=== PATIENT | female | born 1955 | race African-American/Black ===

== ENCOUNTER 2017-08-09 10:29 | Inpatient (IN) ==
[2017-08-09] MEDS ORDERED: FUROSEMIDE 100 MG/10 ML VIAL IV STA (10:49)
[2017-08-09] MEDS ORDERED: MORPHINE 4 MG/1 ML VIAL IV STA (10:50)
[2017-08-09 11:57] LABS: Basophils % 0.4 % (0.0-0.8); Eosinophils # 0.3 10*3/uL (0.0-0.87); Eosinophils % 2.6 % (0.00-10.9); Hematocrit 41.3 VOL% (35.7-47.0); Hemoglobin 12.5 GM/DL (12.0-16.0); Immature Granulocytes % 0.6 %; Immature Granulocytes Absolute 0.06 #; Lymphocytes # 1.3 10*3/uL (1.4-4.0); Lymphocytes % 12.2 % (21.3-54.2); Mean Corpuscular HGB Conc 30.3 GM/DL (32-36); Mean Corpuscular Hemoglobin 30 PG (27-34); Mean Corpuscular Volume 100.2 FL (87-102); Mean Platelet Volume 12.3 FL (9.6-12.0); Monocytes # 0.6 10*3/uL (0.11-0.8); Monocytes % 5.8 % (1.7-12.7); Neutrophils # 8.3 10*3/uL (1.4-7.4); Neutrophils % 78.4 % (38.7-73.9); Platelet Count 158 T/CUMM (130-400); Red Blood Count 4.12 MC/CUMM (3.8-5.5); White Blood Count 10.6 T/CUMM (4-12)
[2017-08-09 12:10] LABS: PT Patient Result 10.5 SECS
[2017-08-09 12:21] LABS: Albumin 3.4 G/DL (3.4-5.0); Bilirubin,Total 0.6 MG/DL (0.2-1.0); Calcium 11.2 MG/DL (8.5-10.1); Osmolality,Calculated 304.8 MOS/KG (273-304); Potassium 5.3 MMOL/L (3.5-5.1); Total Protein 7.2 G/DL (6.4-8.3)
[2017-08-09 12:22] LABS: Troponin I Only 0.885 NG/ML (0.00-0.045)
[2017-08-09] MEDS ORDERED: ONDANSETRON 4 MG/2 ML VIAL IV PRN (12:50)
[2017-08-09] MEDS ORDERED: GLUCAGON 1 MG VIAL IM PRN (12:50)
[2017-08-09] MEDS ORDERED: MAGNESIUM SULF RIDER 2 GM in PREMIX 1 EACH IV PRN (12:50)
[2017-08-09] MEDS ORDERED: MORPHINE 4 MG/1 ML VIAL IV PRN (12:50)
[2017-08-09] MEDS ORDERED: DEXTROSE 50% 25 GM/50 ML VIAL IV PRN (12:50)
[2017-08-09] MEDS ORDERED: ACETAMINOPHEN 325 MG TABLET PO PRN (12:50)
[2017-08-09] MEDS ORDERED: MAGNESIUM SULF RIDER 4 GM in PREMIX 1 EACH IV PRN (12:50)
[2017-08-09] MEDS ORDERED: ALBUTEROL/IPRATROPIUM 3 ML NEB RESP TX PRN (12:54)
[2017-08-09] MEDS ORDERED: NITROGLYCERIN SL 0.4 MG TABLET SL PRN (12:54)
[2017-08-09] MEDS ORDERED: hydrALAZINE 25 MG TABLET PO ONE (16:22)
[2017-08-09] MEDS ORDERED: ISOSORBIDE MONONITRATE 30 MG TABLET PO ONE (16:30)
[2017-08-09] MEDS: CARVEDILOL 25 MG TABLET PO SCH (16:35)
[2017-08-09] MEDS: FUROSEMIDE 40 MG/4 ML VIAL IV SCH (16:37)
[2017-08-09] MEDS: INSULIN ASPART PROTAMINE/ASPART 70/30 100 UNIT/ML SUBCUT SCH (17:01)
[2017-08-09] MEDS: INSULIN GLARGINE 100 UNIT/ML SUBCUT SCH (21:07)
[2017-08-09] MEDS: diphenhydrAMINE CAP 25 MG CAPSULE PO SCH (21:07)
[2017-08-09] MEDS: hydrALAZINE 25 MG TABLET PO SCH (21:07)
[2017-08-10] MEDS: CARVEDILOL 25 MG TABLET PO SCH ×3 (08:43→16:35)
[2017-08-10] MEDS: SPIRONOLACTONE 25 MG TABLET PO SCH (08:43)
[2017-08-10] MEDS: INSULIN ASPART PROTAMINE/ASPART 70/30 100 UNIT/ML SUBCUT SCH ×2 (08:43→16:35)
[2017-08-10] MEDS: hydrALAZINE 25 MG TABLET PO SCH ×2 (08:44→20:50)
[2017-08-10] MEDS: ATORVASTATIN 20 MG TABLET PO SCH (08:44)
[2017-08-10] MEDS: PANTOPRAZOLE 40 MG TABLET PO SCH (08:44)
[2017-08-10] MEDS: FUROSEMIDE 40 MG/4 ML VIAL IV SCH ×2 (08:44→16:36)
[2017-08-10] MEDS: ALLOPURINOL 100 MG TABLET PO SCH (08:44)
[2017-08-10] MEDS ORDERED: ALBUTEROL/IPRATROPIUM 3 ML NEB RESP TX PRN (08:58)
[2017-08-10] MEDS ORDERED: ALBUTEROL/IPRATROPIUM 3 ML NEB RESP TX ONE (08:58)
[2017-08-10] MEDS ORDERED: ISOSORBIDE MONONITRATE 30 MG TABLET PO SCH (09:00)
[2017-08-10] MEDS: ISOSORBIDE DINITRATE 20 MG TABLET PO SCH ×3 (09:11→20:51)
[2017-08-10] MEDS: INSULIN LISPRO 100 UNIT/ML SUBCUT SCH ×2 (16:39→20:53)
[2017-08-10] MEDS: diphenhydrAMINE CAP 25 MG CAPSULE PO SCH (20:51)
[2017-08-10] MEDS: INSULIN GLARGINE 100 UNIT/ML SUBCUT SCH (20:51)
[2017-08-11 05:18] LABS: Basophils % 0.4 % (0.0-0.8); Eosinophils # 0.3 10*3/uL (0.0-0.87); Eosinophils % 4.3 % (0.00-10.9); Hematocrit 37.9 VOL% (35.7-47.0); Hemoglobin 11.5 GM/DL (12.0-16.0); Immature Granulocytes % 0.4 %; Immature Granulocytes Absolute 0.03 #; Lymphocytes # 2.1 10*3/uL (1.4-4.0); Lymphocytes % 28.6 % (21.3-54.2); Mean Corpuscular HGB Conc 30.3 GM/DL (32-36); Mean Corpuscular Hemoglobin 31 PG (27-34); Mean Corpuscular Volume 100.8 FL (87-102); Mean Platelet Volume 12.1 FL (9.6-12.0); Monocytes # 0.6 10*3/uL (0.11-0.8); Monocytes % 8.5 % (1.7-12.7); NRBC # 0.02 10*3/uL; Neutrophils # 4.3 10*3/uL (1.4-7.4); Neutrophils % 57.8 % (38.7-73.9); Platelet Count 129 T/CUMM (130-400); Red Blood Count 3.76 MC/CUMM (3.8-5.5); Red Cell Distribution Width 13.8 % (9.3-17.3); White Blood Count 7.4 T/CUMM (4-12)
[2017-08-11 05:38] LABS: Albumin 3.2 G/DL (3.4-5.0); Bilirubin,Total 0.9 MG/DL (0.2-1.0); Potassium 4.8 MMOL/L (3.5-5.1); Risk Ratio 3.4; Total Protein 6.2 G/DL (6.4-8.3); VLDL CHOLESTEROL 30.2 MG/DL
[2017-08-11] MEDS: INSULIN LISPRO 100 UNIT/ML SUBCUT SCH ×4 (09:16→22:22)
[2017-08-11] MEDS: ISOSORBIDE DINITRATE 20 MG TABLET PO SCH ×3 (09:36→21:24)
[2017-08-11] MEDS: ALLOPURINOL 100 MG TABLET PO SCH (09:36)
[2017-08-11] MEDS: PANTOPRAZOLE 40 MG TABLET PO SCH (09:36)
[2017-08-11] MEDS: ATORVASTATIN 20 MG TABLET PO SCH (09:36)
[2017-08-11] MEDS: INSULIN ASPART PROTAMINE/ASPART 70/30 100 UNIT/ML SUBCUT SCH ×2 (09:37→17:45)
[2017-08-11] MEDS: SPIRONOLACTONE 25 MG TABLET PO SCH (09:37)
[2017-08-11] MEDS: FUROSEMIDE 40 MG/4 ML VIAL IV SCH ×2 (09:37→16:22)
[2017-08-11] MEDS: CARVEDILOL 25 MG TABLET PO SCH ×2 (09:37→17:45)
[2017-08-11] MEDS: hydrALAZINE 25 MG TABLET PO SCH ×3 (09:37→21:24)
[2017-08-11] MEDS: diphenhydrAMINE CAP 25 MG CAPSULE PO SCH (21:24)
[2017-08-11] MEDS: INSULIN GLARGINE 100 UNIT/ML SUBCUT SCH (21:24)
[2017-08-12 05:42] LABS: Osmolality,Calculated 306.1 MOS/KG (273-304); Potassium 4.9 MMOL/L (3.5-5.1)
[2017-08-12] MEDS: FUROSEMIDE 20 MG TABLET PO SCH (09:45)
[2017-08-12] MEDS: ISOSORBIDE DINITRATE 20 MG TABLET PO SCH ×3 (09:45→22:18)
[2017-08-12] MEDS: INSULIN ASPART PROTAMINE/ASPART 70/30 100 UNIT/ML SUBCUT SCH ×2 (09:46→16:40)
[2017-08-12] MEDS: ATORVASTATIN 20 MG TABLET PO SCH (09:46)
[2017-08-12] MEDS: PANTOPRAZOLE 40 MG TABLET PO SCH (09:46)
[2017-08-12] MEDS: hydrALAZINE 25 MG TABLET PO SCH (09:46)
[2017-08-12] MEDS: ALLOPURINOL 100 MG TABLET PO SCH (09:46)
[2017-08-12] MEDS: CARVEDILOL 25 MG TABLET PO SCH ×2 (09:46→16:41)
[2017-08-12] MEDS: INSULIN LISPRO 100 UNIT/ML SUBCUT SCH ×4 (09:47→22:48)
[2017-08-12] MEDS: amLODIPine 2.5 MG TABLET PO SCH (10:05)
[2017-08-12] MEDS: diphenhydrAMINE CAP 25 MG CAPSULE PO SCH (22:19)
[2017-08-12] MEDS: INSULIN GLARGINE 100 UNIT/ML SUBCUT SCH (22:19)
[2017-08-13 05:36] LABS: Basophils % 0.4 % (0.0-0.8); Eosinophils # 0.3 10*3/uL (0.0-0.87); Eosinophils % 3.8 % (0.00-10.9); Hematocrit 36.5 VOL% (35.7-47.0); Hemoglobin 11.3 GM/DL (12.0-16.0); Immature Granulocytes % 0.5 %; Immature Granulocytes Absolute 0.04 #; Lymphocytes % 24.3 % (21.3-54.2); Mean Corpuscular Hemoglobin 31 PG (27-34); Mean Corpuscular Volume 99.2 FL (87-102); Mean Platelet Volume 12.4 FL (9.6-12.0); Monocytes # 0.8 10*3/uL (0.11-0.8); Monocytes % 10.1 % (1.7-12.7); Neutrophils % 60.9 % (38.7-73.9); Platelet Count 129 T/CUMM (130-400); Red Blood Count 3.68 MC/CUMM (3.8-5.5); Red Cell Distribution Width 13.7 % (9.3-17.3); White Blood Count 8.2 T/CUMM (4-12)
[2017-08-13 05:57] LABS: Calcium 10.4 MG/DL (8.5-10.1); Osmolality,Calculated 307.3 MOS/KG (273-304)
[2017-08-13] MEDS ORDERED: hydrALAZINE 25 MG TABLET ONE (08:23)
[2017-08-13] MEDS: INSULIN ASPART PROTAMINE/ASPART 70/30 100 UNIT/ML SUBCUT SCH (09:15)
[2017-08-13] MEDS: FUROSEMIDE 20 MG TABLET PO SCH (09:16)
[2017-08-13] MEDS: INSULIN LISPRO 100 UNIT/ML SUBCUT SCH ×2 (09:16→12:10)
[2017-08-13] MEDS: PANTOPRAZOLE 40 MG TABLET PO SCH (09:17)
[2017-08-13] MEDS: CARVEDILOL 25 MG TABLET PO SCH (09:17)
[2017-08-13] MEDS: ISOSORBIDE DINITRATE 20 MG TABLET PO SCH (09:17)
[2017-08-13] MEDS: ALLOPURINOL 100 MG TABLET PO SCH (09:17)
[2017-08-13] MEDS: amLODIPine 2.5 MG TABLET PO SCH (09:17)
[2017-08-13] MEDS: ATORVASTATIN 20 MG TABLET PO SCH (09:17)
[2017-08-13 12:05] VITALS: BP 119/75
== END 2017-08-13 15:20 | disposition home or self-care (01) | DRG 291 ==
LOC: EDUNIT# → N.ED 10:29 → N.EDINP 12:50 → N.TELEN 14:21
PROVIDERS: ADMIT Family Medicine; ATTEND Family Medicine

== ENCOUNTER 2017-11-10 13:15 | Inpatient (IN) ==
[2017-11-10 15:39] LABS: Basophils % 0.4 % (0.0-0.8); Eosinophils # 0.3 10*3/uL (0.0-0.87); Eosinophils % 3.2 % (0.00-10.9); Hematocrit 40.6 VOL% (35.7-47.0); Hemoglobin 12.2 GM/DL (12.0-16.0); Immature Granulocytes % 0.4 %; Immature Granulocytes Absolute 0.03 #; Lymphocytes # 1.5 10*3/uL (1.4-4.0); Lymphocytes % 17.6 % (21.3-54.2); Mean Corpuscular Hemoglobin 29 PG (27-34); Mean Corpuscular Volume 97.6 FL (87-102); Mean Platelet Volume 11.9 FL (9.6-12.0); Monocytes # 0.9 10*3/uL (0.11-0.8); Monocytes % 10.9 % (1.7-12.7); Neutrophils # 5.6 10*3/uL (1.4-7.4); Neutrophils % 67.5 % (38.7-73.9); Platelet Count 159 T/CUMM (130-400); Red Blood Count 4.16 MC/CUMM (3.8-5.5); Red Cell Distribution Width 14.2 % (9.3-17.3); White Blood Count 8.3 T/CUMM (4-12)
[2017-11-10 15:48] LABS: PT Patient Result 10.6 SECS
[2017-11-10 15:55] LABS: Albumin 3.4 G/DL (3.4-5.0); Bilirubin,Total 0.9 MG/DL (0.2-1.0); Calcium 11.6 MG/DL (8.5-10.1); Osmolality,Calculated 293.8 MOS/KG (273-304); Potassium 4.3 MMOL/L (3.5-5.1); Total Protein 6.7 G/DL (6.4-8.3)
[2017-11-10] MEDS ORDERED: FUROSEMIDE 100 MG/10 ML VIAL IV STA (16:13)
[2017-11-10] MEDS ORDERED: ALBUTEROL NEB SOLN 5 MG/ML 20 ML/BOTTLE RESP TX SCH (16:30)
[2017-11-10 17:21] LABS: Apearance,Urine CLEAR (Clear); Bilirubin,Urine Negative (Negative); Blood, Urine Negative (Negative); Glucose,Urine (UA) Negative (Negative); Ketones,Urine Negative (Negative); Nitrite,Urine Negative (Negative); Protein,Urine Negative; RBC,Urine 7 /HPF (0-4); Squamous Epithelial Cell,Urine Occasional /HPF (0-10); Urine Color Straw (Yellow); Urine Specific Gravity 1.005 (1.001-1.035); Urine Urobilinogen < 2.0 EU/DL (0.2-1.0); WBC,Urine 4 /HPF (0-6)
[2017-11-10] MEDS ORDERED: PIPERACILLIN/TAZOBACTAM 2,250 MG in SODIUM CHLORIDE 0.9% 100 ML IV STA (17:36)
[2017-11-10] MEDS ORDERED: cefTRIAXone 1,000 MG in SODIUM CHLORIDE 0.9% 100 ML IV STA (17:36)
[2017-11-10] MEDS ORDERED: cefTRIAXone 1,000 MG in SYRINGE 1 EACH IV STA (18:00)
[2017-11-10] MEDS ORDERED: DEXTROSE 50% 25 GM/50 ML VIAL IV PRN (19:46)
[2017-11-10] MEDS ORDERED: SODIUM CHLORIDE 0.9% 1,000 ML IV SCH (19:46)
[2017-11-10] MEDS ORDERED: ONDANSETRON 4 MG/2 ML VIAL IV PRN (19:46)
[2017-11-10] MEDS ORDERED: ACETAMINOPHEN 325 MG TABLET PO PRN (19:46)
[2017-11-10] MEDS ORDERED: ALBUTEROL/IPRATROPIUM 3 ML NEB RESP TX PRN (19:46)
[2017-11-10] MEDS ORDERED: GLUCAGON 1 MG VIAL IM PRN (19:46)
[2017-11-10] MEDS: DOCUSATE SODIUM 100 MG CAPSULE PO SCH (21:19)
[2017-11-10] MEDS: ENOXAPARIN 40 MG/0.4 ML SYRINGE SUBCUT SCH (21:19)
[2017-11-10 22:31] LABS: Troponin I Only 0.829 NG/ML (0.00-0.045)
[2017-11-11] MEDS: INSULIN REGULAR 100 UNIT/ML SUBCUT SCH ×5 (00:06→21:03)
[2017-11-11] MEDS: PIPERACILLIN/TAZOBACTAM 3,375 MG in SODIUM CHLORIDE 0.9% 100 ML IV SCH ×3 (02:40→21:02)
[2017-11-11 05:35] LABS: Bilirubin,Total 0.7 MG/DL (0.2-1.0); Calcium 11.3 MG/DL (8.5-10.1); Risk Ratio 3.37; Total Protein 6.5 G/DL (6.4-8.3); VLDL CHOLESTEROL 45.6 MG/DL
[2017-11-11 05:56] LABS: Basophils % 0.4 % (0.0-0.8); Eosinophils # 0.3 10*3/uL (0.0-0.87); Eosinophils % 3.9 % (0.00-10.9); Hematocrit 38.7 VOL% (35.7-47.0); Hemoglobin 11.7 GM/DL (12.0-16.0); Immature Granulocytes % 0.4 %; Immature Granulocytes Absolute 0.03 #; Lymphocytes # 1.4 10*3/uL (1.4-4.0); Lymphocytes % 18.3 % (21.3-54.2); Mean Corpuscular HGB Conc 30.2 GM/DL (32-36); Mean Corpuscular Hemoglobin 30 PG (27-34); Mean Corpuscular Volume 97.5 FL (87-102); Mean Platelet Volume 12.4 FL (9.6-12.0); Monocytes # 0.9 10*3/uL (0.11-0.8); Monocytes % 11.7 % (1.7-12.7); Neutrophils # 5.1 10*3/uL (1.4-7.4); Neutrophils % 65.3 % (38.7-73.9); Platelet Count 140 T/CUMM (130-400); Red Blood Count 3.97 MC/CUMM (3.8-5.5); Red Cell Distribution Width 14.2 % (9.3-17.3); White Blood Count 7.9 T/CUMM (4-12)
[2017-11-11] MEDS ORDERED: NITROGLYCERIN SL 0.4 MG TABLET SL PRN (08:09)
[2017-11-11] MEDS: FUROSEMIDE 40 MG/4 ML VIAL IV SCH ×2 (09:24→17:54)
[2017-11-11] MEDS: amLODIPine 2.5 MG TABLET PO SCH (09:25)
[2017-11-11] MEDS: ISOSORBIDE DINITRATE 20 MG TABLET PO SCH ×3 (09:25→21:02)
[2017-11-11] MEDS: ATORVASTATIN 20 MG TABLET PO SCH (09:26)
[2017-11-11] MEDS: DOCUSATE SODIUM 100 MG CAPSULE PO SCH ×2 (09:26→21:02)
[2017-11-11] MEDS: PANTOPRAZOLE 40 MG TABLET PO SCH (09:26)
[2017-11-11] MEDS: ASPIRIN EC 81 MG TABLET PO SCH (09:27)
[2017-11-11 10:18] LABS: CKMB % 1.9 %
[2017-11-11 10:19] LABS: Troponin I Only 0.852 NG/ML (0.00-0.045)
[2017-11-11 11:57] LABS: Calcium 11.3 MG/DL (8.5-10.1); Osmolality,Calculated 297.3 MOS/KG (273-304); Potassium 4.1 MMOL/L (3.5-5.1)
[2017-11-11 12:01] LABS: CKMB % 1.9 %
[2017-11-11 12:02] LABS: Troponin I Only 0.82 NG/ML (0.00-0.045)
[2017-11-11] MEDS: cefTRIAXone 1,000 MG in SYRINGE 1 EACH IV SCH (17:53)
[2017-11-11] MEDS: CARVEDILOL 25 MG TABLET PO SCH (17:56)
[2017-11-11] MEDS: ENOXAPARIN 40 MG/0.4 ML SYRINGE SUBCUT SCH (21:02)
[2017-11-12] MEDS: PIPERACILLIN/TAZOBACTAM 3,375 MG in SODIUM CHLORIDE 0.9% 100 ML IV SCH ×3 (04:01→21:25)
[2017-11-12 06:03] LABS: Basophils % 0.4 % (0.0-0.8); Calcium 11.5 MG/DL (8.5-10.1); Eosinophils # 0.4 10*3/uL (0.0-0.87); Eosinophils % 5.2 % (0.00-10.9); Hematocrit 39.4 VOL% (35.7-47.0); Hemoglobin 11.9 GM/DL (12.0-16.0); Immature Granulocytes % 0.3 %; Immature Granulocytes Absolute 0.02 #; Lymphocytes # 1.5 10*3/uL (1.4-4.0); Lymphocytes % 20.2 % (21.3-54.2); Mean Corpuscular HGB Conc 30.2 GM/DL (32-36); Mean Corpuscular Hemoglobin 29 PG (27-34); Mean Platelet Volume 12.5 FL (9.6-12.0); Monocytes % 12.9 % (1.7-12.7); Neutrophils # 4.6 10*3/uL (1.4-7.4); Osmolality,Calculated 298.1 MOS/KG (273-304); Platelet Count 157 T/CUMM (130-400); Potassium 4.1 MMOL/L (3.5-5.1); Red Blood Count 4.06 MC/CUMM (3.8-5.5); Red Cell Distribution Width 14.2 % (9.3-17.3); White Blood Count 7.5 T/CUMM (4-12)
[2017-11-12 06:08] LABS: Calcium 11.9 MG/DL (8.5-10.1); Osmolality,Calculated 297.3 MOS/KG (273-304); Potassium 4.1 MMOL/L (3.5-5.1)
[2017-11-12] MEDS ORDERED: ACETAMINOPHEN 325 MG TABLET PO PRN (08:06)
[2017-11-12] MEDS: INSULIN REGULAR 100 UNIT/ML SUBCUT SCH ×4 (08:51→21:27)
[2017-11-12] MEDS: CARVEDILOL 25 MG TABLET PO SCH ×2 (08:54→16:53)
[2017-11-12] MEDS: DOCUSATE SODIUM 100 MG CAPSULE PO SCH ×2 (08:54→21:26)
[2017-11-12] MEDS: amLODIPine 2.5 MG TABLET PO SCH (08:54)
[2017-11-12] MEDS: ASPIRIN EC 81 MG TABLET PO SCH (08:54)
[2017-11-12] MEDS: ISOSORBIDE DINITRATE 20 MG TABLET PO SCH ×3 (08:54→21:26)
[2017-11-12] MEDS: PANTOPRAZOLE 40 MG TABLET PO SCH (08:54)
[2017-11-12] MEDS: ATORVASTATIN 20 MG TABLET PO SCH (08:54)
[2017-11-12] MEDS: ALLOPURINOL 100 MG TABLET PO SCH (12:36)
[2017-11-12] MEDS: FUROSEMIDE 80 MG TABLET PO SCH (12:37)
[2017-11-12] MEDS: FUROSEMIDE 40 MG/4 ML VIAL IV SCH (14:13)
[2017-11-12] MEDS: cefTRIAXone 1,000 MG in SYRINGE 1 EACH IV SCH ×2 (16:51→17:22)
[2017-11-12] MEDS: INSULIN ASPART PROTAMINE/ASPART 70/30 100 UNIT/ML SUBCUT SCH (16:53)
[2017-11-12] MEDS: diphenhydrAMINE CAP 25 MG CAPSULE PO SCH (21:25)
[2017-11-12] MEDS: INSULIN GLARGINE 100 UNIT/ML SUBCUT SCH (21:26)
[2017-11-12] MEDS: ENOXAPARIN 40 MG/0.4 ML SYRINGE SUBCUT SCH (21:26)
[2017-11-13] MEDS: PIPERACILLIN/TAZOBACTAM 3,375 MG in SODIUM CHLORIDE 0.9% 100 ML IV SCH ×3 (05:14→21:33)
[2017-11-13 06:15] LABS: Calcium 10.9 MG/DL (8.5-10.1); Osmolality,Calculated 296.4 MOS/KG (273-304); Potassium 4.3 MMOL/L (3.5-5.1)
[2017-11-13 06:21] LABS: Basophils % 0.5 % (0.0-0.8); Eosinophils # 0.4 10*3/uL (0.0-0.87); Eosinophils % 4.7 % (0.00-10.9); Hematocrit 40.8 VOL% (35.7-47.0); Hemoglobin 12.3 GM/DL (12.0-16.0); Immature Granulocytes % 0.4 %; Immature Granulocytes Absolute 0.03 #; Lymphocytes # 1.5 10*3/uL (1.4-4.0); Mean Corpuscular HGB Conc 30.1 GM/DL (32-36); Mean Corpuscular Hemoglobin 30 PG (27-34); Mean Corpuscular Volume 98.1 FL (87-102); Mean Platelet Volume 12.6 FL (9.6-12.0); Monocytes % 12.1 % (1.7-12.7); Neutrophils # 5.1 10*3/uL (1.4-7.4); Neutrophils % 63.3 % (38.7-73.9); Platelet Count 156 T/CUMM (130-400); Red Blood Count 4.16 MC/CUMM (3.8-5.5); Red Cell Distribution Width 14.1 % (9.3-17.3); White Blood Count 8.1 T/CUMM (4-12)
[2017-11-13] MEDS: PANTOPRAZOLE 40 MG TABLET PO SCH (09:03)
[2017-11-13] MEDS: ISOSORBIDE DINITRATE 20 MG TABLET PO SCH ×3 (09:04→21:33)
[2017-11-13] MEDS: INSULIN ASPART PROTAMINE/ASPART 70/30 100 UNIT/ML SUBCUT SCH ×2 (09:04→17:16)
[2017-11-13] MEDS: amLODIPine 2.5 MG TABLET PO SCH (09:05)
[2017-11-13] MEDS: CARVEDILOL 25 MG TABLET PO SCH ×2 (09:05→17:02)
[2017-11-13] MEDS: ALLOPURINOL 100 MG TABLET PO SCH (09:05)
[2017-11-13] MEDS: ATORVASTATIN 20 MG TABLET PO SCH (09:05)
[2017-11-13] MEDS: ASPIRIN EC 81 MG TABLET PO SCH (09:06)
[2017-11-13] MEDS: FUROSEMIDE 80 MG TABLET PO SCH (09:06)
[2017-11-13] MEDS: DOCUSATE SODIUM 100 MG CAPSULE PO SCH ×2 (09:16→21:37)
[2017-11-13] MEDS: INSULIN REGULAR 100 UNIT/ML SUBCUT SCH ×4 (09:16→21:58)
[2017-11-13] MEDS: cefTRIAXone 1,000 MG in SYRINGE 1 EACH IV SCH (17:06)
[2017-11-13] MEDS: ENOXAPARIN 40 MG/0.4 ML SYRINGE SUBCUT SCH (21:33)
[2017-11-13] MEDS: diphenhydrAMINE CAP 25 MG CAPSULE PO SCH (21:33)
[2017-11-13] MEDS: INSULIN GLARGINE 100 UNIT/ML SUBCUT SCH (21:59)
[2017-11-14 04:48] LABS: Basophils % 0.3 % (0.0-0.8); Eosinophils # 0.3 10*3/uL (0.0-0.87); Eosinophils % 4.4 % (0.00-10.9); Hemoglobin 11.2 GM/DL (12.0-16.0); Immature Granulocytes % 0.4 %; Immature Granulocytes Absolute 0.03 #; Lymphocytes # 1.3 10*3/uL (1.4-4.0); Lymphocytes % 19.2 % (21.3-54.2); Mean Corpuscular HGB Conc 30.3 GM/DL (32-36); Mean Corpuscular Hemoglobin 29 PG (27-34); Mean Corpuscular Volume 96.6 FL (87-102); Mean Platelet Volume 12.6 FL (9.6-12.0); Monocytes # 0.9 10*3/uL (0.11-0.8); Monocytes % 13.4 % (1.7-12.7); Neutrophils # 4.2 10*3/uL (1.4-7.4); Neutrophils % 62.3 % (38.7-73.9); Platelet Count 147 T/CUMM (130-400); Red Blood Count 3.83 MC/CUMM (3.8-5.5); Red Cell Distribution Width 14.2 % (9.3-17.3); White Blood Count 6.8 T/CUMM (4-12)
[2017-11-14] MEDS: PIPERACILLIN/TAZOBACTAM 3,375 MG in SODIUM CHLORIDE 0.9% 100 ML IV SCH ×3 (05:06→20:06)
[2017-11-14 05:16] LABS: Calcium 10.3 MG/DL (8.5-10.1); Osmolality,Calculated 300.1 MOS/KG (273-304); Potassium 3.9 MMOL/L (3.5-5.1)
[2017-11-14] MEDS ORDERED: ceFAZolin 1,000 MG in SYRINGE 1 EACH IV ONE (06:00)
[2017-11-14] MEDS ORDERED: FAMOTIDINE 20 MG TABLET PO ONE (07:00)
[2017-11-14] MEDS ORDERED: DIAZEPAM 5 MG TABLET PO ONE (07:00)
[2017-11-14] MEDS ORDERED: ALBUTEROL/IPRATROPIUM 3 ML NEB RESP TX PRN (07:00)
[2017-11-14] MEDS: INSULIN REGULAR 100 UNIT/ML SUBCUT SCH ×4 (07:59→20:13)
[2017-11-14] MEDS: INSULIN ASPART PROTAMINE/ASPART 70/30 100 UNIT/ML SUBCUT SCH ×2 (08:00→16:20)
[2017-11-14] MEDS ORDERED: BUPIVACAINE 0.25% /EPI 10 ML VIAL ONE (10:01)
[2017-11-14] MEDS ORDERED: LIDOCAINE 1%/EPI INJ 20 ML VIAL ONE (10:02)
[2017-11-14] MEDS: FUROSEMIDE 80 MG TABLET PO SCH (10:09)
[2017-11-14] MEDS: CARVEDILOL 25 MG TABLET PO SCH ×2 (10:09→16:21)
[2017-11-14] MEDS: ASPIRIN EC 81 MG TABLET PO SCH (10:09)
[2017-11-14] MEDS: DOCUSATE SODIUM 100 MG CAPSULE PO SCH ×3 (10:09→20:09)
[2017-11-14] MEDS: ISOSORBIDE DINITRATE 20 MG TABLET PO SCH ×3 (10:09→20:06)
[2017-11-14] MEDS: ATORVASTATIN 20 MG TABLET PO SCH (10:10)
[2017-11-14] MEDS: ALLOPURINOL 100 MG TABLET PO SCH (10:10)
[2017-11-14] MEDS: PANTOPRAZOLE 40 MG TABLET PO SCH (10:10)
[2017-11-14] MEDS: amLODIPine 2.5 MG TABLET PO SCH (10:10)
[2017-11-14] MEDS ORDERED: SODIUM CHLORIDE 0.9% 250 ML IV SCH (10:30)
[2017-11-14] MEDS ORDERED: MICROFIBRILLAR COLLAGEN POWDER 1 GM CAN TOP ONE (11:40)
[2017-11-14] MEDS ORDERED: TISSUE ADHESIVE 1 EACH APPLICATOR TOP ONE (12:03)
[2017-11-14] MEDS ORDERED: ALBUTEROL/IPRATROPIUM 3 ML NEB RESP TX ONE (12:28)
[2017-11-14] MEDS ORDERED: SEVOFLURANE 1 UNIT/15 MINUTE INH ONE (12:53)
[2017-11-14] MEDS ORDERED: ROCURONIUM 100 MG/10 ML VIAL IV ONE (12:54)
[2017-11-14] MEDS ORDERED: EPINEPHrine 1 MG/ML VIAL ONE (12:54)
[2017-11-14] MEDS ORDERED: PHENYLEPHRINE 10 MG/1 ML VIAL IV ONE (12:54)
[2017-11-14] MEDS ORDERED: PHENYLEPHRINE 1 MG/10 ML SYRINGE IV ONE (12:54)
[2017-11-14] MEDS ORDERED: ETOMIDATE 40 MG/20 ML VIAL IV ONE (12:54)
[2017-11-14] MEDS ORDERED: MIDAZOLAM 2 MG/2 ML VIAL ONE (12:54)
[2017-11-14] MEDS ORDERED: SODIUM CHLORIDE 0.9% 250 ML IV ONE (12:54)
[2017-11-14] MEDS: MORPHINE 4 MG/1 ML VIAL IV PRN (13:35)
[2017-11-14 13:48] LABS: CKMB % 2.2 %
[2017-11-14 13:49] LABS: Troponin I Only 0.899 NG/ML (0.00-0.045)
[2017-11-14 13:58] LABS: Albumin 3.2 G/DL (3.4-5.0); Bilirubin,Total 0.7 MG/DL (0.2-1.0); Calcium 10.6 MG/DL (8.5-10.1); Osmolality,Calculated 303.8 MOS/KG (273-304); Potassium 3.9 MMOL/L (3.5-5.1); Total Protein 6.6 G/DL (6.4-8.3)
[2017-11-14] MEDS: cefTRIAXone 1,000 MG in SYRINGE 1 EACH IV SCH (17:45)
[2017-11-14 19:32] LABS: CKMB % 1.9 %
[2017-11-14 19:42] LABS: Troponin I Only 0.887 NG/ML (0.00-0.045)
[2017-11-14] MEDS: diphenhydrAMINE CAP 25 MG CAPSULE PO SCH (20:06)
[2017-11-14] MEDS: ENOXAPARIN 40 MG/0.4 ML SYRINGE SUBCUT SCH (20:07)
[2017-11-14] MEDS: INSULIN GLARGINE 100 UNIT/ML SUBCUT SCH (20:13)
[2017-11-15 04:13] LABS: Basophils % 0.5 % (0.0-0.8); Eosinophils # 0.3 10*3/uL (0.0-0.87); Eosinophils % 3.2 % (0.00-10.9); Hematocrit 36.8 VOL% (35.7-47.0); Hemoglobin 11.2 GM/DL (12.0-16.0); Immature Granulocytes % 0.4 %; Immature Granulocytes Absolute 0.03 #; Lymphocytes # 1.2 10*3/uL (1.4-4.0); Mean Corpuscular HGB Conc 30.4 GM/DL (32-36); Mean Corpuscular Hemoglobin 30 PG (27-34); Mean Corpuscular Volume 98.1 FL (87-102); Mean Platelet Volume 12.3 FL (9.6-12.0); Monocytes % 12.8 % (1.7-12.7); Neutrophils # 5.4 10*3/uL (1.4-7.4); Neutrophils % 68.1 % (38.7-73.9); Platelet Count 145 T/CUMM (130-400); Red Blood Count 3.75 MC/CUMM (3.8-5.5); Red Cell Distribution Width 14.3 % (9.3-17.3); White Blood Count 7.9 T/CUMM (4-12)
[2017-11-15 04:53] LABS: Calcium 10.3 MG/DL (8.5-10.1); Osmolality,Calculated 303.7 MOS/KG (273-304); Potassium 3.9 MMOL/L (3.5-5.1)
[2017-11-15] MEDS: PIPERACILLIN/TAZOBACTAM 3,375 MG in SODIUM CHLORIDE 0.9% 100 ML IV SCH ×3 (06:09→21:27)
[2017-11-15] MEDS: INSULIN REGULAR 100 UNIT/ML SUBCUT SCH ×4 (07:49→21:27)
[2017-11-15] MEDS: INSULIN ASPART PROTAMINE/ASPART 70/30 100 UNIT/ML SUBCUT SCH ×2 (07:52→17:30)
[2017-11-15] MEDS: DOCUSATE SODIUM 100 MG CAPSULE PO SCH ×2 (09:33→22:13)
[2017-11-15] MEDS: ATORVASTATIN 20 MG TABLET PO SCH (09:33)
[2017-11-15] MEDS: FUROSEMIDE 80 MG TABLET PO SCH (09:33)
[2017-11-15] MEDS: ISOSORBIDE DINITRATE 20 MG TABLET PO SCH ×3 (09:34→21:26)
[2017-11-15] MEDS: ASPIRIN EC 81 MG TABLET PO SCH (09:34)
[2017-11-15] MEDS: CARVEDILOL 25 MG TABLET PO SCH ×2 (09:34→17:29)
[2017-11-15] MEDS: PANTOPRAZOLE 40 MG TABLET PO SCH (09:34)
[2017-11-15] MEDS: amLODIPine 2.5 MG TABLET PO SCH (09:35)
[2017-11-15] MEDS: ALLOPURINOL 100 MG TABLET PO SCH (09:37)
[2017-11-15] MEDS: cefTRIAXone 1,000 MG in SYRINGE 1 EACH IV SCH (17:31)
[2017-11-15] MEDS: ENOXAPARIN 30 MG/0.3 ML SYRINGE SUBCUT SCH (21:26)
[2017-11-15] MEDS: diphenhydrAMINE CAP 25 MG CAPSULE PO SCH (21:26)
[2017-11-15] MEDS: INSULIN GLARGINE 100 UNIT/ML SUBCUT SCH (21:27)
[2017-11-16 05:25] LABS: Calcium 9.8 MG/DL (8.5-10.1); Osmolality,Calculated 302.8 MOS/KG (273-304); Potassium 3.7 MMOL/L (3.5-5.1)
[2017-11-16 05:39] LABS: Basophils % 0.1 % (0.0-0.8); Eosinophils # 0.3 10*3/uL (0.0-0.87); Eosinophils % 3.9 % (0.00-10.9); Hematocrit 35.6 VOL% (35.7-47.0); Immature Granulocytes % 0.4 %; Immature Granulocytes Absolute 0.03 #; Lymphocytes # 1.3 10*3/uL (1.4-4.0); Lymphocytes % 19.4 % (21.3-54.2); Mean Corpuscular HGB Conc 30.1 GM/DL (32-36); Mean Corpuscular Hemoglobin 30 PG (27-34); Mean Corpuscular Volume 98.6 FL (87-102); Mean Platelet Volume 11.7 FL (9.6-12.0); Monocytes # 0.9 10*3/uL (0.11-0.8); Monocytes % 12.3 % (1.7-12.7); Neutrophils # 4.4 10*3/uL (1.4-7.4); Neutrophils % 63.9 % (38.7-73.9); Platelet Count 126 T/CUMM (130-400); Red Blood Count 3.61 MC/CUMM (3.8-5.5); Red Cell Distribution Width 14.4 % (9.3-17.3); White Blood Count 6.9 T/CUMM (4-12)
[2017-11-16 05:42] LABS: Hemoglobin 10.7 GM/DL (12.0-16.0)
[2017-11-16] MEDS: PIPERACILLIN/TAZOBACTAM 3,375 MG in SODIUM CHLORIDE 0.9% 100 ML IV SCH ×3 (05:52→22:04)
[2017-11-16] MEDS: INSULIN REGULAR 100 UNIT/ML SUBCUT SCH ×4 (08:17→22:05)
[2017-11-16] MEDS: ALLOPURINOL 100 MG TABLET PO SCH (09:40)
[2017-11-16] MEDS: ATORVASTATIN 20 MG TABLET PO SCH (09:40)
[2017-11-16] MEDS: PANTOPRAZOLE 40 MG TABLET PO SCH (09:40)
[2017-11-16] MEDS: FUROSEMIDE 80 MG TABLET PO SCH (09:40)
[2017-11-16] MEDS: ASPIRIN EC 81 MG TABLET PO SCH (09:40)
[2017-11-16] MEDS: amLODIPine 2.5 MG TABLET PO SCH (09:40)
[2017-11-16] MEDS: INSULIN ASPART PROTAMINE/ASPART 70/30 100 UNIT/ML SUBCUT SCH ×2 (09:41→17:33)
[2017-11-16] MEDS: CARVEDILOL 25 MG TABLET PO SCH ×2 (09:41→16:11)
[2017-11-16] MEDS: ISOSORBIDE DINITRATE 20 MG TABLET PO SCH ×3 (09:41→21:58)
[2017-11-16] MEDS: DOCUSATE SODIUM 100 MG CAPSULE PO SCH ×2 (09:41→22:05)
[2017-11-16] MEDS: POTASSIUM CHLORIDE 20 MEQ TABLET PO SCH ×2 (12:03→21:58)
[2017-11-16 13:43] LABS: Apearance,Urine Slightly Hazy (Clear); Bilirubin,Urine Negative (Negative); Blood, Urine Small mg/dL (Negative); Glucose,Urine (UA) Negative (Negative); Ketones,Urine Negative (Negative); Nitrite,Urine Negative (Negative); Protein,Urine Negative; RBC,Urine 7 /HPF (0-4); Squamous Epithelial Cell,Urine Occasional /HPF (0-10); Urine Color Yellow (Yellow); Urine Specific Gravity 1.011 (1.001-1.035); Urine Urobilinogen < 2.0 EU/DL (0.2-1.0); WBC,Urine 22 /HPF (0-6)
[2017-11-16] MEDS: cefTRIAXone 1,000 MG in SYRINGE 1 EACH IV SCH (17:33)
[2017-11-16] MEDS: diphenhydrAMINE CAP 25 MG CAPSULE PO SCH (21:58)
[2017-11-16] MEDS: ENOXAPARIN 30 MG/0.3 ML SYRINGE SUBCUT SCH (21:58)
[2017-11-16] MEDS: MORPHINE 4 MG/1 ML VIAL IV PRN (21:59)
[2017-11-16] MEDS: INSULIN GLARGINE 100 UNIT/ML SUBCUT SCH (22:05)
[2017-11-17] MEDS ORDERED: LOPERAMIDE 2 MG CAPSULE PO PRN (02:09)
[2017-11-17] MEDS: PIPERACILLIN/TAZOBACTAM 3,375 MG in SODIUM CHLORIDE 0.9% 100 ML IV SCH ×3 (05:03→20:55)
[2017-11-17 05:18] LABS: Basophils % 0.4 % (0.0-0.8); Eosinophils # 0.3 10*3/uL (0.0-0.87); Hematocrit 35.6 VOL% (35.7-47.0); Hemoglobin 10.9 GM/DL (12.0-16.0); Immature Granulocytes % 0.3 %; Immature Granulocytes Absolute 0.02 #; Lymphocytes # 1.5 10*3/uL (1.4-4.0); Mean Corpuscular HGB Conc 30.6 GM/DL (32-36); Mean Corpuscular Hemoglobin 30 PG (27-34); Mean Corpuscular Volume 98.1 FL (87-102); Mean Platelet Volume 12.5 FL (9.6-12.0); Monocytes # 0.8 10*3/uL (0.11-0.8); Monocytes % 11.1 % (1.7-12.7); Neutrophils # 4.4 10*3/uL (1.4-7.4); Neutrophils % 62.2 % (38.7-73.9); Platelet Count 137 T/CUMM (130-400); Red Blood Count 3.63 MC/CUMM (3.8-5.5); Red Cell Distribution Width 14.1 % (9.3-17.3)
[2017-11-17 05:26] LABS: Calcium 9.7 MG/DL (8.5-10.1); Osmolality,Calculated 306.7 MOS/KG (273-304); Potassium 3.9 MMOL/L (3.5-5.1)
[2017-11-17] MEDS: INSULIN REGULAR 100 UNIT/ML SUBCUT SCH ×4 (09:48→20:56)
[2017-11-17] MEDS: CARVEDILOL 25 MG TABLET PO SCH ×2 (09:49→16:05)
[2017-11-17] MEDS: amLODIPine 2.5 MG TABLET PO SCH (09:49)
[2017-11-17] MEDS: PANTOPRAZOLE 40 MG TABLET PO SCH (09:49)
[2017-11-17] MEDS: ASPIRIN EC 81 MG TABLET PO SCH (09:49)
[2017-11-17] MEDS: ALLOPURINOL 100 MG TABLET PO SCH (09:49)
[2017-11-17] MEDS: ISOSORBIDE DINITRATE 20 MG TABLET PO SCH ×3 (09:49→20:56)
[2017-11-17] MEDS: ATORVASTATIN 20 MG TABLET PO SCH (09:49)
[2017-11-17] MEDS: POTASSIUM CHLORIDE 20 MEQ TABLET PO SCH ×2 (09:50→20:56)
[2017-11-17] MEDS: DOCUSATE SODIUM 100 MG CAPSULE PO SCH ×3 (09:50→20:58)
[2017-11-17] MEDS: FUROSEMIDE 80 MG TABLET PO SCH (09:50)
[2017-11-17] MEDS: INSULIN ASPART PROTAMINE/ASPART 70/30 100 UNIT/ML SUBCUT SCH ×2 (09:55→16:04)
[2017-11-17] MEDS: cefTRIAXone 1,000 MG in SYRINGE 1 EACH IV SCH (17:46)
[2017-11-17] MEDS: INSULIN GLARGINE 100 UNIT/ML SUBCUT SCH (20:56)
[2017-11-17] MEDS: diphenhydrAMINE CAP 25 MG CAPSULE PO SCH (20:56)
[2017-11-17] MEDS: ENOXAPARIN 30 MG/0.3 ML SYRINGE SUBCUT SCH (20:57)
[2017-11-18] MEDS: PIPERACILLIN/TAZOBACTAM 3,375 MG in SODIUM CHLORIDE 0.9% 100 ML IV SCH ×2 (05:55→13:15)
[2017-11-18] MEDS: INSULIN ASPART PROTAMINE/ASPART 70/30 100 UNIT/ML SUBCUT SCH (09:01)
[2017-11-18] MEDS: INSULIN REGULAR 100 UNIT/ML SUBCUT SCH ×2 (09:01→13:15)
[2017-11-18] MEDS: ISOSORBIDE DINITRATE 20 MG TABLET PO SCH (09:02)
[2017-11-18] MEDS: CARVEDILOL 25 MG TABLET PO SCH (09:02)
[2017-11-18] MEDS: ASPIRIN EC 81 MG TABLET PO SCH (09:02)
[2017-11-18] MEDS: amLODIPine 2.5 MG TABLET PO SCH (09:02)
[2017-11-18] MEDS: ATORVASTATIN 20 MG TABLET PO SCH (09:02)
[2017-11-18] MEDS: PANTOPRAZOLE 40 MG TABLET PO SCH (09:02)
[2017-11-18] MEDS: ALLOPURINOL 100 MG TABLET PO SCH (09:03)
[2017-11-18] MEDS: FUROSEMIDE 80 MG TABLET PO SCH (09:03)
[2017-11-18] MEDS: DOCUSATE SODIUM 100 MG CAPSULE PO SCH (09:04)
[2017-11-18] MEDS: POTASSIUM CHLORIDE 20 MEQ TABLET PO SCH (09:08)
[2017-11-18 13:17] VITALS: BP 147/94
== END 2017-11-18 15:10 | disposition home health service (06) | DRG 981 ==
LOC: N.ED 13:15 → N.EDINP 17:46 → N.TELES 19:45 → N.ICU 11-14 13:14 → N.TELES 11-15 15:38
PROVIDERS: ADMIT Family Medicine; ATTEND Family Medicine

== ENCOUNTER 2018-07-05 12:00 | Inpatient (IN) ==
[2018-07-05 12:55] LABS: Basophils % 0.3 % (0.0-0.8); Eosinophils # 0.2 10*3/uL (0.0-0.87); Eosinophils % 3.5 % (0.00-10.9); Hematocrit 41.3 VOL% (35.7-47.0); Hemoglobin 11.9 GM/DL (12.0-16.0); Immature Granulocytes % 0.2 %; Immature Granulocytes Absolute 0.01 #; Lymphocytes # 1.2 10*3/uL (1.4-4.0); Lymphocytes % 18.8 % (21.3-54.2); Mean Corpuscular HGB Conc 28.8 GM/DL (32-36); Mean Corpuscular Hemoglobin 28 PG (27-34); Mean Corpuscular Volume 98.1 FL (87-102); Mean Platelet Volume 11.6 FL (9.6-12.0); Monocytes # 0.6 10*3/uL (0.11-0.8); Monocytes % 8.9 % (1.7-12.7); Neutrophils # 4.5 10*3/uL (1.4-7.4); Neutrophils % 68.3 % (38.7-73.9); Platelet Count 162 T/CUMM (130-400); Red Blood Count 4.21 MC/CUMM (3.8-5.5); Red Cell Distribution Width 15.1 % (9.3-17.3); White Blood Count 6.6 T/CUMM (4-12)
[2018-07-05 13:06] LABS: Albumin 3.4 G/DL (3.4-5.0); Bilirubin,Total 0.6 MG/DL (0.2-1.0); Calcium 10.4 MG/DL (8.5-10.1); Potassium 4.6 MMOL/L (3.5-5.1); Total Protein 6.9 G/DL (6.4-8.3)
[2018-07-05] MEDS ORDERED: FUROSEMIDE 40 MG/4 ML VIAL IV STA (13:31)
[2018-07-05] MEDS ORDERED: ONDANSETRON 4 MG/2 ML VIAL IV PRN (15:06)
[2018-07-05] MEDS ORDERED: ACETAMINOPHEN 325 MG TABLET PO PRN ×2 (15:06→15:11)
[2018-07-05] MEDS ORDERED: NITROGLYCERIN SL 0.4 MG TABLET SL PRN (15:11)
[2018-07-05] MEDS ORDERED: FUROSEMIDE 40 MG/4 ML VIAL IV SCH (16:00)
[2018-07-05] MEDS: CARVEDILOL 25 MG TABLET PO SCH (17:26)
[2018-07-05] MEDS: INSULIN ASPART PROTAMINE/ASPART 70/30 100 UNIT/ML SUBCUT SCH (17:26)
[2018-07-05] MEDS ORDERED: ALBUTEROL/IPRATROPIUM 3 ML NEB RESP TX PRN (19:00)
[2018-07-05] MEDS: DOCUSATE SODIUM 100 MG CAPSULE PO SCH (20:31)
[2018-07-05] MEDS: diphenhydrAMINE CAP 25 MG CAPSULE PO SCH (20:32)
[2018-07-05] MEDS: ATORVASTATIN 20 MG TABLET PO SCH (20:32)
[2018-07-05] MEDS: ISOSORBIDE DINITRATE 20 MG TABLET PO SCH (20:32)
[2018-07-05] MEDS: INSULIN GLARGINE 100 UNIT/ML SUBCUT SCH (20:33)
[2018-07-06 05:34] LABS: CKMB % 2.2 %; Calcium 10.1 MG/DL (8.5-10.1); Osmolality,Calculated 301.7 MOS/KG (273-304)
[2018-07-06 05:35] LABS: Troponin I 0.745 NG/ML (0.00-0.045)
[2018-07-06] MEDS: FUROSEMIDE 40 MG/4 ML VIAL IV SCH ×2 (08:47→16:10)
[2018-07-06] MEDS: ISOSORBIDE DINITRATE 20 MG TABLET PO SCH ×3 (08:48→20:36)
[2018-07-06] MEDS: DOCUSATE SODIUM 100 MG CAPSULE PO SCH ×2 (08:48→20:36)
[2018-07-06] MEDS: CARVEDILOL 25 MG TABLET PO SCH ×2 (08:48→16:12)
[2018-07-06] MEDS: PANTOPRAZOLE 40 MG TABLET PO SCH (08:49)
[2018-07-06] MEDS: ALLOPURINOL 100 MG TABLET PO SCH (08:49)
[2018-07-06] MEDS: amLODIPine 2.5 MG TABLET PO SCH (08:49)
[2018-07-06] MEDS ORDERED: PANTOPRAZOLE 40 MG TABLET PO SCH (09:00)
[2018-07-06] MEDS: INSULIN ASPART PROTAMINE/ASPART 70/30 100 UNIT/ML SUBCUT SCH ×2 (09:34→16:11)
[2018-07-06] MEDS: Linaclotide [Linzess] 72 MCG PO SCH (09:46)
[2018-07-06] MEDS: MAGNESIUM GLUCONATE 500 MG TABLET PO SCH (09:49)
[2018-07-06] MEDS: guaiFENesin/DM ER 600-30 MG TABLET PO SCH ×2 (10:01→20:36)
[2018-07-06] MEDS: diphenhydrAMINE CAP 25 MG CAPSULE PO SCH (20:36)
[2018-07-06] MEDS: ATORVASTATIN 20 MG TABLET PO SCH (20:36)
[2018-07-06] MEDS: INSULIN GLARGINE 100 UNIT/ML SUBCUT SCH (21:11)
[2018-07-07 05:15] LABS: Basophils % 0.2 % (0.0-0.8); Eosinophils # 0.3 10*3/uL (0.0-0.87); Eosinophils % 4.8 % (0.00-10.9); Hematocrit 35.9 VOL% (35.7-47.0); Hemoglobin 10.7 GM/DL (12.0-16.0); Immature Granulocytes % 0.3 %; Immature Granulocytes Absolute 0.02 #; Lymphocytes # 1.5 10*3/uL (1.4-4.0); Lymphocytes % 23.2 % (21.3-54.2); Mean Corpuscular HGB Conc 29.8 GM/DL (32-36); Mean Corpuscular Hemoglobin 29 PG (27-34); Mean Corpuscular Volume 95.7 FL (87-102); Mean Platelet Volume 12.3 FL (9.6-12.0); Monocytes # 0.7 10*3/uL (0.11-0.8); Monocytes % 11.6 % (1.7-12.7); Neutrophils # 3.8 10*3/uL (1.4-7.4); Neutrophils % 59.9 % (38.7-73.9); Platelet Count 148 T/CUMM (130-400); Red Blood Count 3.75 MC/CUMM (3.8-5.5); Red Cell Distribution Width 14.9 % (9.3-17.3); White Blood Count 6.3 T/CUMM (4-12)
[2018-07-07 05:25] LABS: Calcium 9.5 MG/DL (8.5-10.1); Osmolality,Calculated 305.8 MOS/KG (273-304)
[2018-07-07] MEDS: INSULIN ASPART PROTAMINE/ASPART 70/30 100 UNIT/ML SUBCUT SCH ×2 (08:35→17:00)
[2018-07-07] MEDS: FUROSEMIDE 40 MG/4 ML VIAL IV SCH ×2 (08:36→17:02)
[2018-07-07] MEDS: Linaclotide [Linzess] 72 MCG PO SCH (09:31)
[2018-07-07] MEDS: guaiFENesin/DM ER 600-30 MG TABLET PO SCH ×2 (10:00→21:47)
[2018-07-07] MEDS: MAGNESIUM GLUCONATE 500 MG TABLET PO SCH (10:00)
[2018-07-07] MEDS: PANTOPRAZOLE 40 MG TABLET PO SCH (10:00)
[2018-07-07] MEDS: amLODIPine 2.5 MG TABLET PO SCH (10:01)
[2018-07-07] MEDS: ALLOPURINOL 100 MG TABLET PO SCH (10:01)
[2018-07-07] MEDS: ISOSORBIDE DINITRATE 20 MG TABLET PO SCH ×3 (10:02→21:47)
[2018-07-07] MEDS: CARVEDILOL 25 MG TABLET PO SCH ×2 (10:02→17:04)
[2018-07-07] MEDS: DOCUSATE SODIUM 100 MG CAPSULE PO SCH ×2 (10:02→21:46)
[2018-07-07] MEDS: AMIODARONE 200 MG TABLET PO SCH ×2 (15:25→21:53)
[2018-07-07] MEDS: diphenhydrAMINE CAP 25 MG CAPSULE PO SCH (21:46)
[2018-07-07] MEDS: ATORVASTATIN 20 MG TABLET PO SCH (21:46)
[2018-07-07] MEDS: INSULIN GLARGINE 100 UNIT/ML SUBCUT SCH (21:47)
[2018-07-08 05:03] LABS: Calcium 9.6 MG/DL (8.5-10.1); Osmolality,Calculated 305.8 MOS/KG (273-304)
[2018-07-08 05:58] LABS: Basophils % 0.3 % (0.0-0.8); Eosinophils # 0.3 10*3/uL (0.0-0.87); Eosinophils % 3.8 % (0.00-10.9); Hematocrit 35.8 VOL% (35.7-47.0); Hemoglobin 10.6 GM/DL (12.0-16.0); Immature Granulocytes % 0.4 %; Immature Granulocytes Absolute 0.03 #; Lymphocytes # 1.3 10*3/uL (1.4-4.0); Lymphocytes % 19.4 % (21.3-54.2); Mean Corpuscular HGB Conc 29.6 GM/DL (32-36); Mean Corpuscular Hemoglobin 28 PG (27-34); Mean Corpuscular Volume 95.2 FL (87-102); Mean Platelet Volume 12.1 FL (9.6-12.0); Monocytes # 0.9 10*3/uL (0.11-0.8); Monocytes % 12.4 % (1.7-12.7); Neutrophils # 4.4 10*3/uL (1.4-7.4); Neutrophils % 63.7 % (38.7-73.9); Platelet Count 144 T/CUMM (130-400); Red Blood Count 3.76 MC/CUMM (3.8-5.5); Red Cell Distribution Width 14.8 % (9.3-17.3); White Blood Count 6.9 T/CUMM (4-12)
[2018-07-08] MEDS: AMIODARONE 200 MG TABLET PO SCH ×2 (08:50→23:11)
[2018-07-08] MEDS: amLODIPine 2.5 MG TABLET PO SCH (08:50)
[2018-07-08] MEDS: DOCUSATE SODIUM 100 MG CAPSULE PO SCH ×2 (08:50→23:12)
[2018-07-08] MEDS: ALLOPURINOL 100 MG TABLET PO SCH (08:50)
[2018-07-08] MEDS: MAGNESIUM GLUCONATE 500 MG TABLET PO SCH (08:50)
[2018-07-08] MEDS: PANTOPRAZOLE 40 MG TABLET PO SCH (08:51)
[2018-07-08] MEDS: guaiFENesin/DM ER 600-30 MG TABLET PO SCH ×2 (08:51→23:12)
[2018-07-08] MEDS: CARVEDILOL 25 MG TABLET PO SCH ×2 (08:51→16:24)
[2018-07-08] MEDS: ISOSORBIDE DINITRATE 20 MG TABLET PO SCH ×3 (08:51→23:12)
[2018-07-08] MEDS: INSULIN ASPART PROTAMINE/ASPART 70/30 100 UNIT/ML SUBCUT SCH ×2 (08:51→16:24)
[2018-07-08] MEDS: FUROSEMIDE 40 MG/4 ML VIAL IV SCH ×2 (08:51→16:24)
[2018-07-08] MEDS: Linaclotide [Linzess] 72 MCG PO SCH (08:51)
[2018-07-08] MEDS: diphenhydrAMINE CAP 25 MG CAPSULE PO SCH (23:11)
[2018-07-08] MEDS: ATORVASTATIN 20 MG TABLET PO SCH (23:12)
[2018-07-08] MEDS: INSULIN GLARGINE 100 UNIT/ML SUBCUT SCH (23:13)
[2018-07-09 05:08] LABS: Basophils % 0.3 % (0.0-0.8); Eosinophils # 0.3 10*3/uL (0.0-0.87); Hematocrit 35.7 VOL% (35.7-47.0); Hemoglobin 10.7 GM/DL (12.0-16.0); Immature Granulocytes % 0.3 %; Immature Granulocytes Absolute 0.02 #; Lymphocytes # 1.5 10*3/uL (1.4-4.0); Lymphocytes % 21.9 % (21.3-54.2); Mean Corpuscular Hemoglobin 29 PG (27-34); Mean Corpuscular Volume 95.2 FL (87-102); Monocytes # 0.9 10*3/uL (0.11-0.8); Monocytes % 13.3 % (1.7-12.7); Neutrophils % 60.2 % (38.7-73.9); Platelet Count 148 T/CUMM (130-400); Red Blood Count 3.75 MC/CUMM (3.8-5.5); Red Cell Distribution Width 14.8 % (9.3-17.3); White Blood Count 6.7 T/CUMM (4-12)
[2018-07-09 05:24] LABS: Calcium 9.8 MG/DL (8.5-10.1); Osmolality,Calculated 302.1 MOS/KG (273-304); Potassium 3.9 MMOL/L (3.5-5.1)
[2018-07-09 08:01] VITALS: BP 99/66
[2018-07-09] MEDS: PANTOPRAZOLE 40 MG TABLET PO SCH (08:30)
[2018-07-09] MEDS: guaiFENesin/DM ER 600-30 MG TABLET PO SCH (08:30)
[2018-07-09] MEDS: ALLOPURINOL 100 MG TABLET PO SCH (08:30)
[2018-07-09] MEDS: MAGNESIUM GLUCONATE 500 MG TABLET PO SCH (08:30)
[2018-07-09] MEDS: AMIODARONE 200 MG TABLET PO SCH (08:30)
[2018-07-09] MEDS: ISOSORBIDE DINITRATE 20 MG TABLET PO SCH (08:30)
[2018-07-09] MEDS: CARVEDILOL 25 MG TABLET PO SCH (08:30)
[2018-07-09] MEDS: amLODIPine 2.5 MG TABLET PO SCH (08:30)
[2018-07-09] MEDS: DOCUSATE SODIUM 100 MG CAPSULE PO SCH (08:30)
[2018-07-09] MEDS: INSULIN ASPART PROTAMINE/ASPART 70/30 100 UNIT/ML SUBCUT SCH (08:31)
[2018-07-09] MEDS: Linaclotide [Linzess] 72 MCG PO SCH (08:31)
[2018-07-09] MEDS ORDERED: FUROSEMIDE 80 MG TABLET PO SCH (09:00)
== END 2018-07-09 11:10 | disposition home or self-care (01) | DRG 291 ==
LOC: N.ED 12:00 → N.EDINP 15:06 → N.TELEN 16:28
PROVIDERS: ADMIT Family Medicine; ATTEND Family Medicine

== ENCOUNTER 2020-01-14 05:05 | Observation (INO) ==
[2020-01-14] MEDS ORDERED: MORPHINE 4 MG/1 ML VIAL IV STA ×3 (05:28→08:40)
[2020-01-14] MEDS ORDERED: ONDANSETRON 4 MG/2 ML VIAL IV STA ×2 (05:28→08:40)
[2020-01-14] MEDS ORDERED: PANTOPRAZOLE 40 MG VIAL IV STA (05:28)
[2020-01-14] MEDS ORDERED: ALBUTEROL/IPRATROPIUM 3 ML NEB RESP TX STA (05:28)
[2020-01-14] MEDS ORDERED: FUROSEMIDE 40 MG/4 ML VIAL IV STA (05:28)
[2020-01-14] MEDS ORDERED: hydrALAZINE 20 MG/1 ML VIAL IV STA (05:28)
[2020-01-14] MEDS ORDERED: methylPREDNISolone SOD SUC 125 MG/2 ML VIAL IV STA (05:28)
[2020-01-14] MEDS ORDERED: NITROGLYCERIN 2% OINT 1 INCH/GM PACK TOP STA (05:28)
[2020-01-14 05:33] LABS: Bacteria,Urine Occasional /HPF (Few); Bilirubin,Urine Negative (Negative); Blood, Urine Small mg/dL (Negative); Glucose,Urine (UA) Negative (Negative); Ketones,Urine Negative (Negative); Nitrite,Urine Negative (Negative); Protein,Urine 30 MG/DL; RBC,Urine 2 /HPF (0-4); Squamous Epithelial Cell,Urine Occasional /HPF (0-10); Urine Appearance CLEAR (Clear); Urine Color Yellow (Yellow); Urine Specific Gravity 1.011 (1.001-1.035); Urine Urobilinogen < 2.0 EU/DL (0.2-1.0); WBC,Urine 4 /HPF (0-6)
[2020-01-14 06:13] LABS: Albumin 3.7 G/DL (3.4-5.0); Bilirubin,Total 0.4 MG/DL (0.2-1.0); Calcium 11.1 MG/DL (8.5-10.1)
[2020-01-14 06:59] LABS: Basophils % 0.5 % (0.0-0.8); Eosinophils # 0.2 10*3/uL (0.0-0.87); Eosinophils % 1.8 % (0.00-10.9); Hematocrit 44.4 VOL% (35.7-47.0); Hemoglobin 13.2 GM/DL (12.0-16.0); Immature Granulocytes % 0.5 %; Immature Granulocytes Absolute 0.04 #; Lymphocytes # 1.3 10*3/uL (1.4-4.0); Lymphocytes % 14.4 % (21.3-54.2); Mean Corpuscular HGB Conc 29.7 GM/DL (32-36); Mean Corpuscular Volume 98.2 FL (87-102); Mean Platelet Volume 12.4 FL (9.6-12.0); Monocytes % 8.8 % (1.7-12.7); Platelet Count 165 T/CUMM (130-400); Red Blood Count 4.52 MC/CUMM (3.8-5.5); Red Cell Distribution Width 15.5 % (9.3-17.3); White Blood Count 8.9 T/CUMM (4-12)
[2020-01-14 07:17] LABS: Platelet Estimate Normal
[2020-01-14 07:18] LABS: Anisocytosis 1+; Giant Platelets Few; Macrocytosis 1+
[2020-01-14] MEDS ORDERED: GLUCAGON 1 MG VIAL IM PRN (08:38)
[2020-01-14] MEDS ORDERED: MAGNESIUM SULF RIDER 4 GM in PREMIX 1 EACH IV PRN (08:38)
[2020-01-14] MEDS ORDERED: MAGNESIUM SULF RIDER 2 GM in PREMIX 1 EACH IV PRN (08:38)
[2020-01-14] MEDS ORDERED: DEXTROSE 50% 25 GM/50 ML VIAL IV PRN (08:38)
[2020-01-14] MEDS ORDERED: MORPHINE 4 MG/1 ML VIAL IV PRN (08:38)
[2020-01-14] MEDS ORDERED: ALBUTEROL/IPRATROPIUM 3 ML NEB RESP TX PRN (08:51)
[2020-01-14] MEDS ORDERED: NITROGLYCERIN SL 0.4 MG TABLET SL PRN (08:51)
[2020-01-14] MEDS: PANTOPRAZOLE 40 MG TABLET PO SCH (11:11)
[2020-01-14] MEDS: ISOSORBIDE DINITRATE 20 MG TABLET PO SCH ×3 (11:11→21:31)
[2020-01-14] MEDS: FUROSEMIDE 80 MG TABLET PO SCH (11:11)
[2020-01-14] MEDS: amLODIPine 2.5 MG TABLET PO SCH (11:11)
[2020-01-14] MEDS: allopurinoL 100 MG TABLET PO SCH (11:11)
[2020-01-14] MEDS: ENOXAPARIN 30 MG/0.3 ML SYRINGE SUBCUT SCH (11:12)
[2020-01-14] MEDS: ALBUTEROL/IPRATROPIUM 3 ML NEB RESP TX SCH ×2 (14:33→19:16)
[2020-01-14] MEDS ORDERED: INFLUENZA VIRUS VACCINE 0.5 ML SYRINGE IM ONE (14:40)
[2020-01-14] MEDS: INSULIN LISPRO 100 UNIT/ML SUBCUT SCH ×3 (15:18→21:29)
[2020-01-14] MEDS: carvediloL 25 MG TABLET PO SCH (16:55)
[2020-01-14] MEDS: INSULIN ASPART PROTAMINE/ASPART 70/30 100 UNIT/ML SUBCUT SCH (16:55)
[2020-01-14] MEDS: INSULIN GLARGINE 100 UNIT/ML SUBCUT SCH (21:29)
[2020-01-14] MEDS: ATORVASTATIN 20 MG TABLET PO SCH (21:31)
[2020-01-14] MEDS: diphenhydrAMINE CAP 25 MG CAPSULE PO SCH (21:31)
[2020-01-14] MEDS ORDERED: PROMETHAZINE INJ 12.5 MG in SODIUM CHLORIDE 0.9% 50 ML IV PRN (21:43)
[2020-01-14] MEDS ORDERED: ACETAMINOPHEN 325 MG TABLET PO PRN (21:46)
[2020-01-14] MEDS: ONDANSETRON 4 MG/2 ML VIAL IV PRN (23:00)
[2020-01-15] MEDS: ALBUTEROL/IPRATROPIUM 3 ML NEB RESP TX SCH ×4 (01:44→19:39)
[2020-01-15 06:32] LABS: Calcium 10.8 MG/DL (8.5-10.1); Osmolality,Calculated 297.5 MOS/KG (273-304); Risk Ratio 2.69; VLDL CHOLESTEROL 19.6 MG/DL
[2020-01-15] MEDS: INSULIN LISPRO 100 UNIT/ML SUBCUT SCH ×4 (08:19→20:31)
[2020-01-15] MEDS: amLODIPine 2.5 MG TABLET PO SCH (09:35)
[2020-01-15] MEDS: FUROSEMIDE 80 MG TABLET PO SCH (09:35)
[2020-01-15] MEDS: INSULIN ASPART PROTAMINE/ASPART 70/30 100 UNIT/ML SUBCUT SCH ×2 (09:36→17:07)
[2020-01-15] MEDS: allopurinoL 100 MG TABLET PO SCH (09:36)
[2020-01-15] MEDS: carvediloL 25 MG TABLET PO SCH ×2 (09:36→17:00)
[2020-01-15] MEDS: PANTOPRAZOLE 40 MG TABLET PO SCH (09:36)
[2020-01-15] MEDS: ENOXAPARIN 30 MG/0.3 ML SYRINGE SUBCUT SCH (09:37)
[2020-01-15] MEDS: ISOSORBIDE DINITRATE 20 MG TABLET PO SCH ×3 (09:40→20:30)
[2020-01-15] MEDS: diphenhydrAMINE CAP 25 MG CAPSULE PO SCH (20:30)
[2020-01-15] MEDS: ATORVASTATIN 20 MG TABLET PO SCH (20:30)
[2020-01-15] MEDS: INSULIN GLARGINE 100 UNIT/ML SUBCUT SCH (20:32)
[2020-01-16] MEDS: ALBUTEROL/IPRATROPIUM 3 ML NEB RESP TX SCH ×3 (01:11→15:27)
[2020-01-16] MEDS: INSULIN LISPRO 100 UNIT/ML SUBCUT SCH ×3 (08:40→17:17)
[2020-01-16] MEDS: INSULIN ASPART PROTAMINE/ASPART 70/30 100 UNIT/ML SUBCUT SCH (09:01)
[2020-01-16] MEDS: amLODIPine 2.5 MG TABLET PO SCH (09:01)
[2020-01-16] MEDS: allopurinoL 100 MG TABLET PO SCH (09:02)
[2020-01-16] MEDS: ISOSORBIDE DINITRATE 20 MG TABLET PO SCH ×2 (09:02→14:48)
[2020-01-16] MEDS: carvediloL 25 MG TABLET PO SCH (09:02)
[2020-01-16] MEDS: FUROSEMIDE 80 MG TABLET PO SCH (09:02)
[2020-01-16] MEDS: ENOXAPARIN 30 MG/0.3 ML SYRINGE SUBCUT SCH ×2 (09:02→09:34)
[2020-01-16] MEDS: PANTOPRAZOLE 40 MG TABLET PO SCH (09:02)
[2020-01-16] MEDS: ONDANSETRON 4 MG/2 ML VIAL IV PRN (09:07)
[2020-01-16 17:35] VITALS: BP 147/88
== END 2020-01-16 18:00 | disposition home health service (06) ==
LOC: N.ED 05:05 → N.EDINP 08:38 → INTOOBSV 08:38 → N.TELEN 13:30
PROVIDERS: ADMIT Family Medicine; ATTEND Family Medicine

== ENCOUNTER 2020-03-28 10:29 | Inpatient (IN) ==
[2020-03-28] MEDS ORDERED: methylPREDNISolone SOD SUC 125 MG/2 ML VIAL IV STA (11:08)
[2020-03-28] MEDS ORDERED: ALBUTEROL/IPRATROPIUM 3 ML NEB RESP TX STA (11:08)
[2020-03-28 11:42] LABS: ABG Base Excess -4.5 MMOL/L (-2.5-2.5); ABG HCO3 20.1 MMOL/L (20-26); ABG Oxygen Saturation 66.3 % (95-100); ABG PCO2 62.9 MM HG (35-48); ABG PO2 41.6 MM HG (80-95); ABG TCO2 22.9 MMOL/L (23-27)
[2020-03-28 11:44] LABS: ABG PH 7.207 (7.35-7.45)
[2020-03-28 11:47] LABS: Basophils % 0.3 % (0.0-0.8); Eosinophils # 0.2 10*3/uL (0.0-0.87); Eosinophils % 1.4 % (0.00-10.9); Hematocrit 42.5 VOL% (35.7-47.0); Hemoglobin 12.9 GM/DL (12.0-16.0); Immature Granulocytes % 0.7 %; Immature Granulocytes Absolute 0.07 #; Lymphocytes # 1.1 10*3/uL (1.4-4.0); Mean Corpuscular HGB Conc 30.4 GM/DL (32-36); Mean Corpuscular Volume 97.7 FL (87-102); Mean Platelet Volume 12.2 FL (9.6-12.0); Monocytes # 1.2 10*3/uL (0.11-0.8); Monocytes % 11.2 % (1.7-12.7); Neutrophils % 76.4 % (38.7-73.9); Platelet Count 171 T/CUMM (130-400); Red Blood Count 4.35 MC/CUMM (3.8-5.5); Red Cell Distribution Width 15.2 % (9.3-17.3); White Blood Count 10.7 T/CUMM (4-12)
[2020-03-28 11:50] LABS: INR 1.1; PT Patient Result 11.3 SECS (9.8-11.9); Partial Thromboplastin Time 28.4 SECS (23.9-33.8)
[2020-03-28] MEDS ORDERED: FUROSEMIDE 40 MG/4 ML VIAL IV STA (12:10)
[2020-03-28 13:06] LABS: Albumin 3.6 G/DL (3.4-5.0); Bilirubin,Total 1.1 MG/DL (0.2-1.0); CKMB % 2.4 %; Calcium 11.7 MG/DL (8.5-10.1); Osmolality,Calculated 309.1 MOS/KG (273-304); Potassium 4.7 MMOL/L (3.5-5.1); Total Protein 7.6 G/DL (6.4-8.3)
[2020-03-28 13:09] LABS: Troponin I 1.09 NG/ML (0.00-0.045)
[2020-03-28] MEDS ORDERED: ALBUTEROL NEB SOLN 5 MG/ML 20 ML/BOTTLE CONT NEB STA (13:38)
[2020-03-28] MEDS ORDERED: ONDANSETRON 4 MG/2 ML VIAL IV PRN (14:26)
[2020-03-28] MEDS ORDERED: ACETAMINOPHEN 325 MG TABLET PO PRN (14:26)
[2020-03-28] MEDS ORDERED: DEXTROSE 50% 25 GM/50 ML VIAL IV PRN (14:26)
[2020-03-28] MEDS ORDERED: GLUCAGON 1 MG VIAL IM PRN (14:26)
[2020-03-28] MEDS ORDERED: ALBUTEROL/IPRATROPIUM 3 ML NEB RESP TX PRN (15:00)
[2020-03-28] MEDS ORDERED: NITROGLYCERIN SL 0.4 MG TABLET SL PRN (15:00)
[2020-03-28] MEDS: ISOSORBIDE DINITRATE 20 MG TABLET PO SCH ×2 (17:25→21:07)
[2020-03-28] MEDS: carvediloL 25 MG TABLET PO SCH (17:44)
[2020-03-28] MEDS: FUROSEMIDE 40 MG/4 ML VIAL IV SCH (17:50)
[2020-03-28] MEDS: methylPREDNISolone SOD SUC 125 MG/2 ML VIAL IV SCH (17:53)
[2020-03-28] MEDS: INSULIN ASPART PROTAMINE/ASPART 70/30 100 UNIT/ML SUBCUT SCH (17:54)
[2020-03-28] MEDS: INSULIN REGULAR 100 UNIT/ML SUBCUT SCH (18:05)
[2020-03-28 18:18] LABS: Calcium 11.9 MG/DL (8.5-10.1); Potassium 4.7 MMOL/L (3.5-5.1)
[2020-03-28 18:28] LABS: CKMB % 2.6 %
[2020-03-28 18:30] LABS: Troponin I 1.08 NG/ML (0.00-0.045)
[2020-03-28] MEDS: ALBUTEROL/IPRATROPIUM 3 ML NEB RESP TX SCH (19:43)
[2020-03-28 21:05] LABS: CKMB % 2.7 %
[2020-03-28] MEDS: diphenhydrAMINE CAP 25 MG CAPSULE PO SCH (21:07)
[2020-03-28] MEDS: DOCUSATE SODIUM 100 MG CAPSULE PO SCH (21:07)
[2020-03-28] MEDS: ATORVASTATIN 20 MG TABLET PO SCH (21:07)
[2020-03-28] MEDS: INSULIN GLARGINE 100 UNIT/ML SUBCUT SCH (21:07)
[2020-03-28 21:09] LABS: Troponin I 1.01 NG/ML (0.00-0.045)
[2020-03-29 00:26] LABS: CKMB % 2.5 %
[2020-03-29 00:27] LABS: Troponin I 0.919 NG/ML (0.00-0.045)
[2020-03-29] MEDS: INSULIN REGULAR 100 UNIT/ML SUBCUT SCH ×4 (01:53→16:59)
[2020-03-29] MEDS: methylPREDNISolone SOD SUC 125 MG/2 ML VIAL IV SCH ×4 (01:53→17:03)
[2020-03-29] MEDS: ALBUTEROL/IPRATROPIUM 3 ML NEB RESP TX SCH ×4 (01:59→19:36)
[2020-03-29] MEDS: INSULIN ASPART PROTAMINE/ASPART 70/30 100 UNIT/ML SUBCUT SCH ×2 (08:24→16:58)
[2020-03-29] MEDS: PANTOPRAZOLE 40 MG TABLET PO SCH (08:25)
[2020-03-29] MEDS: allopurinoL 100 MG TABLET PO SCH (08:25)
[2020-03-29] MEDS: carvediloL 25 MG TABLET PO SCH ×2 (08:25→17:03)
[2020-03-29] MEDS: DOCUSATE SODIUM 100 MG CAPSULE PO SCH ×2 (08:25→20:51)
[2020-03-29] MEDS: ISOSORBIDE DINITRATE 20 MG TABLET PO SCH ×3 (08:25→20:52)
[2020-03-29] MEDS: MULTIVITAMIN (CENTRUM) TABLET PO SCH (08:25)
[2020-03-29] MEDS: amLODIPine 2.5 MG TABLET PO SCH (08:25)
[2020-03-29] MEDS: ASPIRIN EC 81 MG TABLET PO SCH (08:25)
[2020-03-29] MEDS: FUROSEMIDE 40 MG/4 ML VIAL IV SCH ×2 (08:27→15:42)
[2020-03-29] MEDS ORDERED: LINACLOTIDE 72 MCG PO SCH (09:00)
[2020-03-29] MEDS: LINACLOTIDE 145 MCG CAPSULE PO SCH (09:07)
[2020-03-29] MEDS: diphenhydrAMINE CAP 25 MG CAPSULE PO SCH (20:52)
[2020-03-29] MEDS: ATORVASTATIN 20 MG TABLET PO SCH (20:52)
[2020-03-29] MEDS: INSULIN GLARGINE 100 UNIT/ML SUBCUT SCH (21:10)
[2020-03-30] MEDS: ALBUTEROL/IPRATROPIUM 3 ML NEB RESP TX SCH ×4 (00:33→20:50)
[2020-03-30] MEDS: methylPREDNISolone SOD SUC 125 MG/2 ML VIAL IV SCH ×4 (00:43→17:14)
[2020-03-30] MEDS: INSULIN REGULAR 100 UNIT/ML SUBCUT SCH ×4 (00:45→17:11)
[2020-03-30 06:04] LABS: Osmolality,Calculated 319.4 MOS/KG (273-304); Potassium 4.8 MMOL/L (3.5-5.1); Troponin I 0.84 NG/ML (0.00-0.045)
[2020-03-30] MEDS: INSULIN ASPART PROTAMINE/ASPART 70/30 100 UNIT/ML SUBCUT SCH ×2 (08:34→17:10)
[2020-03-30] MEDS: MULTIVITAMIN (CENTRUM) TABLET PO SCH (08:35)
[2020-03-30] MEDS: ASPIRIN EC 81 MG TABLET PO SCH (08:35)
[2020-03-30] MEDS: allopurinoL 100 MG TABLET PO SCH (08:35)
[2020-03-30] MEDS: LINACLOTIDE 145 MCG CAPSULE PO SCH (08:35)
[2020-03-30] MEDS: amLODIPine 2.5 MG TABLET PO SCH (08:35)
[2020-03-30] MEDS: PANTOPRAZOLE 40 MG TABLET PO SCH (08:35)
[2020-03-30] MEDS: DOCUSATE SODIUM 100 MG CAPSULE PO SCH ×2 (08:35→20:38)
[2020-03-30] MEDS: ISOSORBIDE DINITRATE 20 MG TABLET PO SCH ×3 (08:35→20:38)
[2020-03-30] MEDS: carvediloL 25 MG TABLET PO SCH ×2 (08:36→16:14)
[2020-03-30] MEDS: FUROSEMIDE 40 MG/4 ML VIAL IV SCH ×2 (08:36→16:18)
[2020-03-30] MEDS: ATORVASTATIN 20 MG TABLET PO SCH (20:38)
[2020-03-30] MEDS: diphenhydrAMINE CAP 25 MG CAPSULE PO SCH (20:38)
[2020-03-30] MEDS: INSULIN GLARGINE 100 UNIT/ML SUBCUT SCH (20:39)
[2020-03-31] MEDS: methylPREDNISolone SOD SUC 125 MG/2 ML VIAL IV SCH ×4 (00:03→21:30)
[2020-03-31] MEDS: INSULIN REGULAR 100 UNIT/ML SUBCUT SCH ×4 (00:06→17:55)
[2020-03-31] MEDS: ALBUTEROL/IPRATROPIUM 3 ML NEB RESP TX SCH ×4 (01:30→19:53)
[2020-03-31 05:53] LABS: Basophils % 0.1 % (0.0-0.8); Hematocrit 38.2 VOL% (35.7-47.0); Hemoglobin 11.5 GM/DL (12.0-16.0); Immature Granulocytes % 1.2 %; Immature Granulocytes Absolute 0.19 #; Lymphocytes # 0.5 10*3/uL (1.4-4.0); Lymphocytes % 3.1 % (21.3-54.2); Mean Corpuscular HGB Conc 30.1 GM/DL (32-36); Mean Corpuscular Volume 99.2 FL (87-102); Mean Platelet Volume 12.1 FL (9.6-12.0); Monocytes # 0.6 10*3/uL (0.11-0.8); Monocytes % 3.6 % (1.7-12.7); NRBC # 0.03 10*3/uL; Platelet Count 153 T/CUMM (130-400); Red Blood Count 3.85 MC/CUMM (3.8-5.5); Red Cell Distribution Width 14.8 % (9.3-17.3)
[2020-03-31 06:42] LABS: Hypochromia Slight; Lymphocytes 6 % (20-55); Platelet Estimate Normal; Total Cells Counted 100
[2020-03-31 07:14] LABS: Calcium 10.8 MG/DL (8.5-10.1); Osmolality,Calculated 324.8 MOS/KG (273-304); Potassium 4.9 MMOL/L (3.5-5.1)
[2020-03-31] MEDS: carvediloL 25 MG TABLET PO SCH ×2 (09:59→17:57)
[2020-03-31] MEDS: PANTOPRAZOLE 40 MG TABLET PO SCH (09:59)
[2020-03-31] MEDS: amLODIPine 2.5 MG TABLET PO SCH (09:59)
[2020-03-31] MEDS: DOCUSATE SODIUM 100 MG CAPSULE PO SCH ×2 (09:59→21:28)
[2020-03-31] MEDS: MULTIVITAMIN (CENTRUM) TABLET PO SCH (09:59)
[2020-03-31] MEDS: allopurinoL 100 MG TABLET PO SCH (09:59)
[2020-03-31] MEDS: ASPIRIN EC 81 MG TABLET PO SCH (09:59)
[2020-03-31] MEDS: ISOSORBIDE DINITRATE 20 MG TABLET PO SCH ×3 (10:00→21:28)
[2020-03-31] MEDS: FUROSEMIDE 40 MG/4 ML VIAL IV SCH (10:01)
[2020-03-31] MEDS: LINACLOTIDE 145 MCG CAPSULE PO SCH (10:04)
[2020-03-31] MEDS: INSULIN ASPART PROTAMINE/ASPART 70/30 100 UNIT/ML SUBCUT SCH ×2 (11:24→17:56)
[2020-03-31] MEDS: FUROSEMIDE 80 MG TABLET PO SCH (16:30)
[2020-03-31] MEDS: ATORVASTATIN 20 MG TABLET PO SCH (21:28)
[2020-03-31] MEDS: diphenhydrAMINE CAP 25 MG CAPSULE PO SCH (21:28)
[2020-03-31] MEDS: INSULIN GLARGINE 100 UNIT/ML SUBCUT SCH (21:28)
[2020-04-01] MEDS: INSULIN REGULAR 100 UNIT/ML SUBCUT SCH ×4 (01:07→18:14)
[2020-04-01] MEDS: ALBUTEROL/IPRATROPIUM 3 ML NEB RESP TX SCH ×4 (01:39→19:09)
[2020-04-01 06:06] LABS: Basophils % 0.1 % (0.0-0.8); Hematocrit 38.8 VOL% (35.7-47.0); Hemoglobin 11.6 GM/DL (12.0-16.0); Immature Granulocytes % 2.3 %; Immature Granulocytes Absolute 0.34 #; Lymphocytes # 0.5 10*3/uL (1.4-4.0); Lymphocytes % 3.4 % (21.3-54.2); Mean Corpuscular HGB Conc 29.9 GM/DL (32-36); Mean Corpuscular Volume 99.2 FL (87-102); Mean Platelet Volume 11.9 FL (9.6-12.0); Monocytes # 0.4 10*3/uL (0.11-0.8); NRBC # 0.08 10*3/uL; Neutrophils % 91.2 % (38.7-73.9); Platelet Count 163 T/CUMM (130-400); Red Blood Count 3.91 MC/CUMM (3.8-5.5); Red Cell Distribution Width 14.7 % (9.3-17.3); White Blood Count 14.5 T/CUMM (4-12)
[2020-04-01 06:28] LABS: Calcium 10.7 MG/DL (8.5-10.1); Osmolality,Calculated 323.7 MOS/KG (273-304); Potassium 4.6 MMOL/L (3.5-5.1)
[2020-04-01 06:47] LABS: Hypochromia Slight; Lymphocytes 1 % (20-55); Total Cells Counted 100
[2020-04-01 06:48] LABS: Macrocytosis 1+; Platelet Estimate Adequate
[2020-04-01] MEDS: amLODIPine 2.5 MG TABLET PO SCH (10:19)
[2020-04-01] MEDS: MULTIVITAMIN (CENTRUM) TABLET PO SCH (10:20)
[2020-04-01] MEDS: carvediloL 25 MG TABLET PO SCH ×2 (10:20→17:15)
[2020-04-01] MEDS: FUROSEMIDE 80 MG TABLET PO SCH ×2 (10:20→15:06)
[2020-04-01] MEDS: allopurinoL 100 MG TABLET PO SCH (10:20)
[2020-04-01] MEDS: ISOSORBIDE DINITRATE 20 MG TABLET PO SCH ×3 (10:20→20:42)
[2020-04-01] MEDS: methylPREDNISolone SOD SUC 125 MG/2 ML VIAL IV SCH ×2 (10:21→21:34)
[2020-04-01] MEDS: ASPIRIN EC 81 MG TABLET PO SCH (10:21)
[2020-04-01] MEDS: DOCUSATE SODIUM 100 MG CAPSULE PO SCH ×2 (10:21→20:42)
[2020-04-01] MEDS: PANTOPRAZOLE 40 MG TABLET PO SCH (10:21)
[2020-04-01] MEDS: LINACLOTIDE 145 MCG CAPSULE PO SCH (10:21)
[2020-04-01] MEDS: INSULIN ASPART PROTAMINE/ASPART 70/30 100 UNIT/ML SUBCUT SCH ×2 (10:22→17:18)
[2020-04-01] MEDS: BISOPROLOL 5 MG TABLET PO SCH (20:14)
[2020-04-01] MEDS: INSULIN GLARGINE 100 UNIT/ML SUBCUT SCH (20:42)
[2020-04-01] MEDS: ATORVASTATIN 20 MG TABLET PO SCH (20:42)
[2020-04-01] MEDS: diphenhydrAMINE CAP 25 MG CAPSULE PO SCH (20:46)
[2020-04-02] MEDS: INSULIN REGULAR 100 UNIT/ML SUBCUT SCH ×4 (00:17→17:52)
[2020-04-02] MEDS: ALBUTEROL/IPRATROPIUM 3 ML NEB RESP TX SCH ×4 (01:20→18:51)
[2020-04-02 06:08] LABS: Basophils % 0.1 % (0.0-0.8); Hemoglobin 11.6 GM/DL (12.0-16.0); Immature Granulocytes % 2.6 %; Immature Granulocytes Absolute 0.35 #; Lymphocytes # 0.5 10*3/uL (1.4-4.0); Lymphocytes % 3.4 % (21.3-54.2); Mean Corpuscular HGB Conc 30.5 GM/DL (32-36); Mean Corpuscular Volume 98.7 FL (87-102); Mean Platelet Volume 11.9 FL (9.6-12.0); Monocytes # 0.7 10*3/uL (0.11-0.8); Monocytes % 4.8 % (1.7-12.7); NRBC # 0.08 10*3/uL; Neutrophils % 89.1 % (38.7-73.9); Platelet Count 151 T/CUMM (130-400); Red Blood Count 3.85 MC/CUMM (3.8-5.5); Red Cell Distribution Width 14.6 % (9.3-17.3); White Blood Count 13.6 T/CUMM (4-12)
[2020-04-02 06:17] LABS: Calcium 10.9 MG/DL (8.5-10.1); Osmolality,Calculated 330.5 MOS/KG (273-304)
[2020-04-02 06:44] LABS: Lymphocytes 5 % (20-55); Myelocytes 1 %; Nucleated Red Blood Cells 1 (0-5); Total Cells Counted 100
[2020-04-02 06:45] LABS: Hypochromia 1+; Macrocytosis 1+; Platelet Estimate Adequate; Polychromasia Slight
[2020-04-02] MEDS ORDERED: BISOPROLOL 5 MG TABLET PO SCH (09:00)
[2020-04-02] MEDS: MULTIVITAMIN (CENTRUM) TABLET PO SCH (10:11)
[2020-04-02] MEDS: carvediloL 25 MG TABLET PO SCH ×2 (10:11→17:51)
[2020-04-02] MEDS: hydrALAZINE 10 MG TABLET PO SCH ×3 (10:18→21:55)
[2020-04-02] MEDS: ASPIRIN EC 81 MG TABLET PO SCH (10:18)
[2020-04-02] MEDS: amLODIPine 2.5 MG TABLET PO SCH (10:18)
[2020-04-02] MEDS: ISOSORBIDE DINITRATE 20 MG TABLET PO SCH ×3 (10:19→21:55)
[2020-04-02] MEDS: allopurinoL 100 MG TABLET PO SCH (10:19)
[2020-04-02] MEDS: DOCUSATE SODIUM 100 MG CAPSULE PO SCH ×2 (10:19→21:55)
[2020-04-02] MEDS: PANTOPRAZOLE 40 MG TABLET PO SCH (10:19)
[2020-04-02] MEDS: INSULIN ASPART PROTAMINE/ASPART 70/30 100 UNIT/ML SUBCUT SCH ×2 (10:19→17:51)
[2020-04-02] MEDS: methylPREDNISolone SOD SUC 125 MG/2 ML VIAL IV SCH ×2 (10:20→22:13)
[2020-04-02] MEDS: BISOPROLOL 5 MG TABLET PO SCH (10:21)
[2020-04-02] MEDS: LINACLOTIDE 145 MCG CAPSULE PO SCH (10:31)
[2020-04-02] MEDS ORDERED: BISOPROLOL 5 MG TABLET PO ONE (13:13)
[2020-04-02] MEDS: ATORVASTATIN 20 MG TABLET PO SCH (21:55)
[2020-04-02] MEDS: INSULIN GLARGINE 100 UNIT/ML SUBCUT SCH (21:59)
[2020-04-02] MEDS: diphenhydrAMINE CAP 25 MG CAPSULE PO SCH (22:00)
[2020-04-03] MEDS: ALBUTEROL/IPRATROPIUM 3 ML NEB RESP TX SCH ×4 (01:32→19:17)
[2020-04-03] MEDS: INSULIN REGULAR 100 UNIT/ML SUBCUT SCH ×4 (02:11→17:46)
[2020-04-03 06:27] LABS: Basophils % 0.1 % (0.0-0.8); Hematocrit 38.1 VOL% (35.7-47.0); Hemoglobin 11.4 GM/DL (12.0-16.0); Immature Granulocytes % 2.1 %; Immature Granulocytes Absolute 0.25 #; Lymphocytes # 0.5 10*3/uL (1.4-4.0); Mean Corpuscular HGB Conc 29.9 GM/DL (32-36); Mean Corpuscular Volume 98.2 FL (87-102); Monocytes # 0.5 10*3/uL (0.11-0.8); Monocytes % 4.2 % (1.7-12.7); NRBC # 0.12 10*3/uL; Neutrophils % 89.6 % (38.7-73.9); Platelet Count 150 T/CUMM (130-400); Red Blood Count 3.88 MC/CUMM (3.8-5.5); Red Cell Distribution Width 14.6 % (9.3-17.3); White Blood Count 12.2 T/CUMM (4-12)
[2020-04-03 06:48] LABS: Osmolality,Calculated 329.7 MOS/KG (273-304); Potassium 4.9 MMOL/L (3.5-5.1)
[2020-04-03 06:53] LABS: Hypochromia 1+; Lymphocytes 3 % (20-55); Microcytosis 1+; Nucleated Red Blood Cells 1 (0-5); Platelet Estimate Adequate; Total Cells Counted 100
[2020-04-03 06:54] LABS: Ovalocytes Slight
[2020-04-03] MEDS ORDERED: BISOPROLOL 5 MG TABLET PO SCH (09:00)
[2020-04-03] MEDS: INSULIN ASPART PROTAMINE/ASPART 70/30 100 UNIT/ML SUBCUT SCH ×2 (09:33→17:53)
[2020-04-03] MEDS: DOCUSATE SODIUM 100 MG CAPSULE PO SCH ×2 (09:34→21:22)
[2020-04-03] MEDS: amLODIPine 2.5 MG TABLET PO SCH (09:34)
[2020-04-03] MEDS: MULTIVITAMIN (CENTRUM) TABLET PO SCH (09:34)
[2020-04-03] MEDS: hydrALAZINE 10 MG TABLET PO SCH ×3 (09:34→21:23)
[2020-04-03] MEDS: ISOSORBIDE DINITRATE 20 MG TABLET PO SCH ×3 (09:34→21:22)
[2020-04-03] MEDS: allopurinoL 100 MG TABLET PO SCH (09:34)
[2020-04-03] MEDS: carvediloL 25 MG TABLET PO SCH ×2 (09:34→17:53)
[2020-04-03] MEDS: ASPIRIN EC 81 MG TABLET PO SCH (09:34)
[2020-04-03] MEDS: PANTOPRAZOLE 40 MG TABLET PO SCH (09:34)
[2020-04-03] MEDS: LINACLOTIDE 145 MCG CAPSULE PO SCH (09:39)
[2020-04-03] MEDS: methylPREDNISolone SOD SUC 125 MG/2 ML VIAL IV SCH ×2 (10:00→23:34)
[2020-04-03] MEDS: ATORVASTATIN 20 MG TABLET PO SCH (21:22)
[2020-04-03] MEDS: diphenhydrAMINE CAP 25 MG CAPSULE PO SCH (21:22)
[2020-04-03] MEDS: INSULIN GLARGINE 100 UNIT/ML SUBCUT SCH (21:23)
[2020-04-03] MEDS: BISOPROLOL 5 MG TABLET PO SCH (21:23)
[2020-04-04] MEDS: INSULIN REGULAR 100 UNIT/ML SUBCUT SCH ×4 (00:11→18:31)
[2020-04-04] MEDS: ALBUTEROL/IPRATROPIUM 3 ML NEB RESP TX SCH ×4 (00:31→19:58)
[2020-04-04 06:38] LABS: Phosphorous 5.6 MG/DL (2.5-4.9); Uric Acid 5.4 MG/DL (2.6-6.0)
[2020-04-04 06:52] LABS: Thyroid Stimulating Hormone 0.897 uIU/ml (0.358-3.74); Total Protein 6.1 G/DL (6.4-8.3)
[2020-04-04 06:52] LABS: Bilirubin,Urine Negative (Negative); Blood, Urine Negative (Negative); Glucose,Urine (UA) Negative (Negative); Ketones,Urine Negative (Negative); Mucus,Urine Occasional /LPF (Occasional); Nitrite,Urine Negative (Negative); Protein,Urine Negative; RBC,Urine <1 /HPF (0-4); Squamous Epithelial Cell,Urine Occasional /HPF (0-10); Urine Appearance CLEAR (Clear); Urine Color Straw (Yellow); Urine Specific Gravity 1.011 (1.001-1.035); Urine Urobilinogen < 2.0 EU/DL (0.2-1.0); WBC,Urine 2 /HPF (0-6)
[2020-04-04] MEDS: DOCUSATE SODIUM 100 MG CAPSULE PO SCH ×2 (09:04→21:43)
[2020-04-04] MEDS: ASPIRIN EC 81 MG TABLET PO SCH (09:04)
[2020-04-04] MEDS: INSULIN ASPART PROTAMINE/ASPART 70/30 100 UNIT/ML SUBCUT SCH ×2 (09:04→16:47)
[2020-04-04] MEDS: MULTIVITAMIN (CENTRUM) TABLET PO SCH (09:05)
[2020-04-04] MEDS: hydrALAZINE 10 MG TABLET PO SCH ×3 (09:05→21:43)
[2020-04-04] MEDS: amLODIPine 5 MG TABLET PO SCH (09:05)
[2020-04-04] MEDS: allopurinoL 100 MG TABLET PO SCH (09:05)
[2020-04-04] MEDS: BISOPROLOL 5 MG TABLET PO SCH ×2 (09:05→21:43)
[2020-04-04] MEDS: PANTOPRAZOLE 40 MG TABLET PO SCH (09:05)
[2020-04-04] MEDS: carvediloL 25 MG TABLET PO SCH ×2 (09:06→18:31)
[2020-04-04] MEDS: ISOSORBIDE DINITRATE 20 MG TABLET PO SCH ×3 (09:12→21:44)
[2020-04-04] MEDS: LINACLOTIDE 145 MCG CAPSULE PO SCH (09:12)
[2020-04-04 09:41] LABS: Calcium 11.3 MG/DL (8.5-10.1); Osmolality,Calculated 337.3 MOS/KG (273-304); Potassium 5.1 MMOL/L (3.5-5.1)
[2020-04-04] MEDS: methylPREDNISolone SOD SUC 125 MG/2 ML VIAL IV SCH ×2 (11:30→23:39)
[2020-04-04] MEDS: ATORVASTATIN 20 MG TABLET PO SCH (21:43)
[2020-04-04] MEDS: INSULIN GLARGINE 100 UNIT/ML SUBCUT SCH (21:45)
[2020-04-04] MEDS: diphenhydrAMINE CAP 25 MG CAPSULE PO SCH (21:45)
[2020-04-05] MEDS: ALBUTEROL/IPRATROPIUM 3 ML NEB RESP TX SCH ×4 (00:32→19:22)
[2020-04-05] MEDS: INSULIN REGULAR 100 UNIT/ML SUBCUT SCH ×4 (01:23→17:30)
[2020-04-05 05:50] LABS: Immunoglobulin A (Chem) 49 MG/DL (70-400); Immunoglobulin G (Chem) 893 MG/DL (700-1600); Immunoglobulin M (Chem) 60 MG/DL (40-230); Total Protein (Chem) 6.1 G/DL (6.4-8.3)
[2020-04-05 06:10] LABS: Basophils % 0.1 % (0.0-0.8); Hemoglobin 11.9 GM/DL (12.0-16.0); Immature Granulocytes Absolute 0.29 #; Lymphocytes # 0.5 10*3/uL (1.4-4.0); Lymphocytes % 3.3 % (21.3-54.2); Mean Corpuscular HGB Conc 30.5 GM/DL (32-36); Mean Corpuscular Volume 95.6 FL (87-102); Mean Platelet Volume 11.1 FL (9.6-12.0); Monocytes # 1.1 10*3/uL (0.11-0.8); Monocytes % 7.4 % (1.7-12.7); NRBC # 0.12 10*3/uL; Neutrophils % 87.2 % (38.7-73.9); Platelet Count 156 T/CUMM (130-400); Red Blood Count 4.08 MC/CUMM (3.8-5.5); Red Cell Distribution Width 14.6 % (9.3-17.3); White Blood Count 14.7 T/CUMM (4-12)
[2020-04-05 06:32] LABS: Hypochromia 1+; Lymphocytes 3 % (20-55); Microcytosis 1+; Nucleated Red Blood Cells 3 (0-5); Platelet Estimate Adequate; Total Cells Counted 100
[2020-04-05 06:45] LABS: Calcium 11.2 MG/DL (8.5-10.1); Osmolality,Calculated 342.3 MOS/KG (273-304); Potassium 5.2 MMOL/L (3.5-5.1)
[2020-04-05 09:06] LABS: Albumin (SPE) Rel % 65.9 %; Alpha 1 (SPE) 0.1 G/DL (0.1-0.4); Alpha 1 (SPE) Rel % 2.2 %; Alpha 2 (SPE) 0.7 G/DL (0.4-1.0); Alpha 2 (SPE) Rel % 11.4 %; Beta (SPE) 0.6 G/DL (0.5-1.1); Beta (SPE) Rel % 9.7 %; Gamma (SPE) 0.7 G/DL (0.7-1.7); Gamma (SPE) Rel % 10.8 %
[2020-04-05] MEDS ORDERED: amLODIPine 5 MG TABLET PO ONE (11:09)
[2020-04-05] MEDS: carvediloL 25 MG TABLET PO SCH ×2 (13:05→17:25)
[2020-04-05] MEDS: INSULIN ASPART PROTAMINE/ASPART 70/30 100 UNIT/ML SUBCUT SCH ×2 (13:05→17:26)
[2020-04-05] MEDS: MULTIVITAMIN (CENTRUM) TABLET PO SCH (13:06)
[2020-04-05] MEDS: ASPIRIN EC 81 MG TABLET PO SCH (13:06)
[2020-04-05] MEDS: allopurinoL 100 MG TABLET PO SCH (13:06)
[2020-04-05] MEDS: BISOPROLOL 5 MG TABLET PO SCH ×2 (13:07→22:07)
[2020-04-05] MEDS: PANTOPRAZOLE 40 MG TABLET PO SCH (13:07)
[2020-04-05] MEDS: DOCUSATE SODIUM 100 MG CAPSULE PO SCH ×2 (13:07→22:08)
[2020-04-05] MEDS: ISOSORBIDE DINITRATE 20 MG TABLET PO SCH ×3 (13:07→22:09)
[2020-04-05] MEDS: LINACLOTIDE 145 MCG CAPSULE PO SCH (13:08)
[2020-04-05] MEDS: methylPREDNISolone SOD SUC 125 MG/2 ML VIAL IV SCH ×2 (13:08→22:06)
[2020-04-05] MEDS: hydrALAZINE 10 MG TABLET PO SCH ×3 (13:09→22:08)
[2020-04-05] MEDS: amLODIPine 5 MG TABLET PO SCH (13:25)
[2020-04-05 13:34] LABS: Immuno Free Light Chain Kappa 1.72 MG/DL (0.33-1.94); Immuno Free Light Chain Lambda 1.45 MG/DL (0.57-2.63); Immuno Free Light Chain Ratio 1.19 MG/DL (0.26-1.65)
[2020-04-05] MEDS: CHOLECALCIFEROL 1,000 UNIT TABLET PO SCH (17:25)
[2020-04-05] MEDS: INSULIN GLARGINE 100 UNIT/ML SUBCUT SCH (22:07)
[2020-04-05] MEDS: diphenhydrAMINE CAP 25 MG CAPSULE PO SCH (22:08)
[2020-04-05] MEDS: ATORVASTATIN 20 MG TABLET PO SCH (22:08)
[2020-04-06] MEDS: ALBUTEROL/IPRATROPIUM 3 ML NEB RESP TX SCH ×4 (00:30→19:55)
[2020-04-06] MEDS: INSULIN REGULAR 100 UNIT/ML SUBCUT SCH ×4 (02:14→18:58)
[2020-04-06 05:36] LABS: Basophils % 0.1 % (0.0-0.8); Hematocrit 37.3 VOL% (35.7-47.0); Hemoglobin 11.6 GM/DL (12.0-16.0); Immature Granulocytes % 2.6 %; Immature Granulocytes Absolute 0.35 #; Lymphocytes # 0.4 10*3/uL (1.4-4.0); Lymphocytes % 3.2 % (21.3-54.2); Mean Corpuscular HGB Conc 31.1 GM/DL (32-36); Mean Corpuscular Volume 95.4 FL (87-102); Mean Platelet Volume 11.8 FL (9.6-12.0); Monocytes # 0.2 10*3/uL (0.11-0.8); Monocytes % 1.6 % (1.7-12.7); NRBC # 0.12 10*3/uL; Neutrophils % 92.5 % (38.7-73.9); Platelet Count 147 T/CUMM (130-400); Red Blood Count 3.91 MC/CUMM (3.8-5.5); Red Cell Distribution Width 14.7 % (9.3-17.3); White Blood Count 13.5 T/CUMM (4-12)
[2020-04-06 05:54] LABS: Calcium 11.4 MG/DL (8.5-10.1); Osmolality,Calculated 338.1 MOS/KG (273-304); Potassium 5.4 MMOL/L (3.5-5.1)
[2020-04-06 06:13] LABS: Hypochromia 1+; Lymphocytes 2 % (20-55); Microcytosis 1+; Nucleated Red Blood Cells 1 (0-5); Platelet Estimate Adequate; Total Cells Counted 100
[2020-04-06] MEDS ORDERED: CLINDAMYCIN INJ 900 MG in PREMIX 1 EACH IV ONE (06:30)
[2020-04-06] MEDS ORDERED: HEPARIN 5,000 UNIT/1 ML VIAL ONE (06:33)
[2020-04-06] MEDS ORDERED: BUPIVACAINE MPF 0.25% 30 ML VIAL ONE (06:33)
[2020-04-06] MEDS ORDERED: LIDOCAINE 1% 20 ML VIAL ONE ×2 (06:33→06:34)
[2020-04-06] MEDS ORDERED: fentaNYL 100 MCG/2 ML VIAL ONE (07:15)
[2020-04-06] MEDS ORDERED: MIDAZOLAM 2 MG/2 ML VIAL ONE (07:15)
[2020-04-06 09:15] LABS: Hepatitis B Core IgM Quant 0.05 Index; Hepatitis B Surface Ag Quant < 0.10 Index; Hepatitis B Surface Ag Result Negative (Negative); Hepatitis C Virus Ab Quant < 0.02 Index; Hepatitis C Virus Ab Result Negative (Negative)
[2020-04-06] MEDS: CHOLECALCIFEROL 1,000 UNIT TABLET PO SCH (11:01)
[2020-04-06] MEDS: allopurinoL 100 MG TABLET PO SCH (11:01)
[2020-04-06] MEDS: hydrALAZINE 10 MG TABLET PO SCH ×3 (11:02→21:07)
[2020-04-06] MEDS: MULTIVITAMIN (CENTRUM) TABLET PO SCH (11:02)
[2020-04-06] MEDS: ASPIRIN EC 81 MG TABLET PO SCH (11:02)
[2020-04-06] MEDS: carvediloL 25 MG TABLET PO SCH ×2 (11:02→17:23)
[2020-04-06] MEDS: BISOPROLOL 5 MG TABLET PO SCH ×2 (11:02→21:06)
[2020-04-06] MEDS: amLODIPine 10 MG TABLET PO SCH (11:02)
[2020-04-06] MEDS: ISOSORBIDE DINITRATE 20 MG TABLET PO SCH ×3 (11:02→21:07)
[2020-04-06] MEDS: PANTOPRAZOLE 40 MG TABLET PO SCH (11:02)
[2020-04-06] MEDS: DOCUSATE SODIUM 100 MG CAPSULE PO SCH ×2 (11:02→21:06)
[2020-04-06] MEDS: methylPREDNISolone SOD SUC 125 MG/2 ML VIAL IV SCH ×2 (11:03→22:52)
[2020-04-06] MEDS: LINACLOTIDE 145 MCG CAPSULE PO SCH (11:03)
[2020-04-06] MEDS: INSULIN ASPART PROTAMINE/ASPART 70/30 100 UNIT/ML SUBCUT SCH ×2 (12:33→17:24)
[2020-04-06] MEDS ORDERED: HEPARIN 10,000 UNIT/10 ML VIAL IV PRN (14:18)
[2020-04-06] MEDS: ATORVASTATIN 20 MG TABLET PO SCH (21:06)
[2020-04-06] MEDS: diphenhydrAMINE CAP 25 MG CAPSULE PO SCH (21:07)
[2020-04-06] MEDS: INSULIN GLARGINE 100 UNIT/ML SUBCUT SCH (21:09)
[2020-04-07] MEDS: ALBUTEROL/IPRATROPIUM 3 ML NEB RESP TX SCH ×4 (02:43→20:12)
[2020-04-07] MEDS: INSULIN REGULAR 100 UNIT/ML SUBCUT SCH ×4 (03:25→18:28)
[2020-04-07 05:28] LABS: Basophils % 0.1 % (0.0-0.8); Hematocrit 36.8 VOL% (35.7-47.0); Hemoglobin 11.5 GM/DL (12.0-16.0); Immature Granulocytes % 2.4 %; Immature Granulocytes Absolute 0.36 #; Lymphocytes # 0.3 10*3/uL (1.4-4.0); Lymphocytes % 2.1 % (21.3-54.2); Mean Corpuscular HGB Conc 31.3 GM/DL (32-36); Mean Corpuscular Volume 95.3 FL (87-102); Mean Platelet Volume 12.1 FL (9.6-12.0); Monocytes # 0.4 10*3/uL (0.11-0.8); Monocytes % 2.9 % (1.7-12.7); NRBC # 0.12 10*3/uL; Neutrophils % 92.5 % (38.7-73.9); Platelet Count 118 T/CUMM (130-400); Red Blood Count 3.86 MC/CUMM (3.8-5.5); Red Cell Distribution Width 14.6 % (9.3-17.3); White Blood Count 14.9 T/CUMM (4-12)
[2020-04-07 05:43] LABS: Calcium 10.9 MG/DL (8.5-10.1); Osmolality,Calculated 324.5 MOS/KG (273-304); Potassium 5.3 MMOL/L (3.5-5.1)
[2020-04-07 05:45] LABS: Albumin 2.9 G/DL (3.4-5.0); Bilirubin,Total 0.7 MG/DL (0.2-1.0); Calcium 10.7 MG/DL (8.5-10.1); Osmolality,Calculated 322.5 MOS/KG (273-304); Potassium 5.3 MMOL/L (3.5-5.1)
[2020-04-07 07:36] LABS: Band Neutrophils 2 % (0-10); Hypochromia 2+; Lymphocytes 2 % (20-55); Nucleated Red Blood Cells 2 (0-5); Platelet Estimate Decreased; Polychromasia Few; Total Cells Counted 100
[2020-04-07] MEDS: methylPREDNISolone SOD SUC 125 MG/2 ML VIAL IV SCH ×2 (09:43→22:42)
[2020-04-07] MEDS: INSULIN ASPART PROTAMINE/ASPART 70/30 100 UNIT/ML SUBCUT SCH ×2 (09:44→17:01)
[2020-04-07] MEDS: LINACLOTIDE 145 MCG CAPSULE PO SCH (09:45)
[2020-04-07] MEDS: allopurinoL 100 MG TABLET PO SCH (09:45)
[2020-04-07] MEDS: MULTIVITAMIN (CENTRUM) TABLET PO SCH (09:46)
[2020-04-07] MEDS: PANTOPRAZOLE 40 MG TABLET PO SCH (09:46)
[2020-04-07] MEDS: ASPIRIN EC 81 MG TABLET PO SCH (09:46)
[2020-04-07] MEDS: DOCUSATE SODIUM 100 MG CAPSULE PO SCH ×2 (09:46→20:46)
[2020-04-07] MEDS: CHOLECALCIFEROL 1,000 UNIT TABLET PO SCH (09:46)
[2020-04-07] MEDS: carvediloL 25 MG TABLET PO SCH ×2 (09:46→16:55)
[2020-04-07] MEDS: hydrALAZINE 10 MG TABLET PO SCH ×3 (09:47→20:46)
[2020-04-07] MEDS: amLODIPine 10 MG TABLET PO SCH (09:47)
[2020-04-07] MEDS: ISOSORBIDE DINITRATE 20 MG TABLET PO SCH ×3 (09:47→20:46)
[2020-04-07] MEDS: BISOPROLOL 5 MG TABLET PO SCH ×2 (09:47→20:46)
[2020-04-07] MEDS: diphenhydrAMINE CAP 25 MG CAPSULE PO SCH (20:46)
[2020-04-07] MEDS: INSULIN GLARGINE 100 UNIT/ML SUBCUT SCH (20:46)
[2020-04-07] MEDS: ATORVASTATIN 20 MG TABLET PO SCH (20:46)
[2020-04-08] MEDS: INSULIN REGULAR 100 UNIT/ML SUBCUT SCH ×4 (00:10→18:08)
[2020-04-08] MEDS: ALBUTEROL/IPRATROPIUM 3 ML NEB RESP TX SCH ×4 (00:40→20:24)
[2020-04-08] MEDS: methylPREDNISolone SOD SUC 125 MG/2 ML VIAL IV SCH ×2 (10:45→23:47)
[2020-04-08] MEDS: INSULIN ASPART PROTAMINE/ASPART 70/30 100 UNIT/ML SUBCUT SCH ×2 (10:46→17:24)
[2020-04-08] MEDS: CHOLECALCIFEROL 1,000 UNIT TABLET PO SCH (13:11)
[2020-04-08] MEDS: carvediloL 25 MG TABLET PO SCH ×2 (13:12→17:24)
[2020-04-08] MEDS: amLODIPine 10 MG TABLET PO SCH (13:12)
[2020-04-08] MEDS: BISOPROLOL 5 MG TABLET PO SCH ×2 (13:12→20:42)
[2020-04-08] MEDS: ISOSORBIDE DINITRATE 20 MG TABLET PO SCH ×3 (13:12→20:43)
[2020-04-08] MEDS: ASPIRIN EC 81 MG TABLET PO SCH (13:12)
[2020-04-08] MEDS: hydrALAZINE 10 MG TABLET PO SCH ×3 (13:13→20:43)
[2020-04-08] MEDS: MULTIVITAMIN (CENTRUM) TABLET PO SCH (13:13)
[2020-04-08] MEDS: LINACLOTIDE 145 MCG CAPSULE PO SCH (13:13)
[2020-04-08] MEDS: DOCUSATE SODIUM 100 MG CAPSULE PO SCH ×2 (13:13→20:43)
[2020-04-08] MEDS: allopurinoL 100 MG TABLET PO SCH (13:13)
[2020-04-08] MEDS: PANTOPRAZOLE 40 MG TABLET PO SCH (13:13)
[2020-04-08] MEDS: ATORVASTATIN 20 MG TABLET PO SCH (20:42)
[2020-04-08] MEDS: INSULIN GLARGINE 100 UNIT/ML SUBCUT SCH (20:42)
[2020-04-08] MEDS: diphenhydrAMINE CAP 25 MG CAPSULE PO SCH (20:43)
[2020-04-09] MEDS: INSULIN REGULAR 100 UNIT/ML SUBCUT SCH ×4 (00:38→18:47)
[2020-04-09] MEDS: ALBUTEROL/IPRATROPIUM 3 ML NEB RESP TX SCH ×4 (00:44→19:27)
[2020-04-09] MEDS: INSULIN ASPART PROTAMINE/ASPART 70/30 100 UNIT/ML SUBCUT SCH ×2 (09:37→18:54)
[2020-04-09] MEDS: MULTIVITAMIN (CENTRUM) TABLET PO SCH (09:38)
[2020-04-09] MEDS: DOCUSATE SODIUM 100 MG CAPSULE PO SCH ×2 (09:38→21:42)
[2020-04-09] MEDS: CHOLECALCIFEROL 1,000 UNIT TABLET PO SCH (09:38)
[2020-04-09] MEDS: LINACLOTIDE 145 MCG CAPSULE PO SCH (09:40)
[2020-04-09] MEDS: allopurinoL 100 MG TABLET PO SCH (09:40)
[2020-04-09] MEDS: PANTOPRAZOLE 40 MG TABLET PO SCH (09:40)
[2020-04-09] MEDS: methylPREDNISolone SOD SUC 125 MG/2 ML VIAL IV SCH ×2 (09:55→21:42)
[2020-04-09 12:49] LABS: Albumin 2.9 G/DL (3.4-5.0); Bilirubin,Total 0.8 MG/DL (0.2-1.0); Calcium 10.9 MG/DL (8.5-10.1); Osmolality,Calculated 306.8 MOS/KG (273-304); Potassium 5.1 MMOL/L (3.5-5.1); Total Protein 6.2 G/DL (6.4-8.3)
[2020-04-09] MEDS: BISOPROLOL 5 MG TABLET PO SCH ×2 (16:12→21:42)
[2020-04-09] MEDS: hydrALAZINE 10 MG TABLET PO SCH ×3 (16:13→21:42)
[2020-04-09] MEDS: ASPIRIN EC 81 MG TABLET PO SCH (16:13)
[2020-04-09] MEDS: amLODIPine 10 MG TABLET PO SCH (16:13)
[2020-04-09] MEDS: ISOSORBIDE DINITRATE 20 MG TABLET PO SCH ×3 (16:13→21:42)
[2020-04-09] MEDS: carvediloL 25 MG TABLET PO SCH ×2 (16:13→18:46)
[2020-04-09 20:23] LABS: Basophils % 0.1 % (0.0-0.8); Hematocrit 35.8 VOL% (35.7-47.0); Hemoglobin 11.6 GM/DL (12.0-16.0); Immature Granulocytes % 1.8 %; Immature Granulocytes Absolute 0.38 #; Lymphocytes # 0.3 10*3/uL (1.4-4.0); Lymphocytes % 1.2 % (21.3-54.2); Mean Corpuscular HGB Conc 32.4 GM/DL (32-36); Mean Corpuscular Volume 92.5 FL (87-102); Mean Platelet Volume 12.1 FL (9.6-12.0); Monocytes % 4.6 % (1.7-12.7); NRBC # 0.09 10*3/uL; Neutrophils % 92.3 % (38.7-73.9); Platelet Count 113 T/CUMM (130-400); Red Blood Count 3.87 MC/CUMM (3.8-5.5); Red Cell Distribution Width 14.6 % (9.3-17.3)
[2020-04-09] MEDS: ATORVASTATIN 20 MG TABLET PO SCH (21:42)
[2020-04-09] MEDS: INSULIN GLARGINE 100 UNIT/ML SUBCUT SCH (21:42)
[2020-04-09] MEDS: diphenhydrAMINE CAP 25 MG CAPSULE PO SCH (21:42)
[2020-04-09 21:45] LABS: Lymphocytes 3 % (20-55); Myelocytes 1 %; Total Cells Counted 100
[2020-04-09 21:46] LABS: Hypersegmented Neutrophil 2+; Hypochromia Slight
[2020-04-09 21:48] LABS: Toxic Granulation 1+
[2020-04-10] MEDS: INSULIN REGULAR 100 UNIT/ML SUBCUT SCH ×4 (00:20→17:24)
[2020-04-10] MEDS: ALBUTEROL/IPRATROPIUM 3 ML NEB RESP TX SCH ×4 (00:24→18:49)
[2020-04-10 06:16] LABS: Basophils % 0.1 % (0.0-0.8); Hematocrit 35.6 VOL% (35.7-47.0); Hemoglobin 11.4 GM/DL (12.0-16.0); Immature Granulocytes % 1.4 %; Lymphocytes # 0.3 10*3/uL (1.4-4.0); Lymphocytes % 1.3 % (21.3-54.2); Mean Platelet Volume 12.7 FL (9.6-12.0); Monocytes # 1.4 10*3/uL (0.11-0.8); Monocytes % 6.6 % (1.7-12.7); NRBC # 0.06 10*3/uL; Neutrophils % 90.6 % (38.7-73.9); Red Blood Count 3.83 MC/CUMM (3.8-5.5); Red Cell Distribution Width 14.6 % (9.3-17.3); White Blood Count 20.9 T/CUMM (4-12)
[2020-04-10 06:37] LABS: Platelet Count 87 T/CUMM (130-400)
[2020-04-10 06:49] LABS: Hypochromia Slight; Lymphocytes 3 % (20-55); Platelet Estimate Decreased; Total Cells Counted 100
[2020-04-10 06:52] LABS: Calcium 10.6 MG/DL (8.5-10.1); Osmolality,Calculated 297.7 MOS/KG (273-304); Potassium 4.6 MMOL/L (3.5-5.1)
[2020-04-10] MEDS: INSULIN ASPART PROTAMINE/ASPART 70/30 100 UNIT/ML SUBCUT SCH ×2 (09:56→15:36)
[2020-04-10] MEDS: MULTIVITAMIN (CENTRUM) TABLET PO SCH (09:57)
[2020-04-10] MEDS: DOCUSATE SODIUM 100 MG CAPSULE PO SCH ×2 (09:57→21:57)
[2020-04-10] MEDS: ASPIRIN EC 81 MG TABLET PO SCH (09:57)
[2020-04-10] MEDS: CHOLECALCIFEROL 1,000 UNIT TABLET PO SCH (09:57)
[2020-04-10] MEDS: ISOSORBIDE DINITRATE 20 MG TABLET PO SCH ×3 (09:57→21:57)
[2020-04-10] MEDS: allopurinoL 100 MG TABLET PO SCH (09:58)
[2020-04-10] MEDS: PANTOPRAZOLE 40 MG TABLET PO SCH (09:58)
[2020-04-10] MEDS: LINACLOTIDE 145 MCG CAPSULE PO SCH (09:58)
[2020-04-10] MEDS: hydrALAZINE 10 MG TABLET PO SCH ×3 (09:59→21:57)
[2020-04-10] MEDS: carvediloL 25 MG TABLET PO SCH ×2 (09:59→17:24)
[2020-04-10] MEDS: methylPREDNISolone SOD SUC 125 MG/2 ML VIAL IV SCH ×2 (10:05→21:57)
[2020-04-10] MEDS: amLODIPine 10 MG TABLET PO SCH (13:11)
[2020-04-10] MEDS: BISOPROLOL 5 MG TABLET PO SCH ×2 (13:11→21:57)
[2020-04-10] MEDS: ATORVASTATIN 20 MG TABLET PO SCH (21:57)
[2020-04-10] MEDS: diphenhydrAMINE CAP 25 MG CAPSULE PO SCH (21:57)
[2020-04-10] MEDS: INSULIN GLARGINE 100 UNIT/ML SUBCUT SCH (22:04)
[2020-04-11] MEDS: ALBUTEROL/IPRATROPIUM 3 ML NEB RESP TX SCH ×4 (00:44→19:06)
[2020-04-11] MEDS: INSULIN REGULAR 100 UNIT/ML SUBCUT SCH ×5 (01:33→18:53)
[2020-04-11 05:07] LABS: Hematocrit 34.2 VOL% (35.7-47.0); Hemoglobin 11.2 GM/DL (12.0-16.0); Immature Granulocytes % 1.5 %; Immature Granulocytes Absolute 0.35 #; Lymphocytes # 0.3 10*3/uL (1.4-4.0); Lymphocytes % 1.3 % (21.3-54.2); Mean Corpuscular HGB Conc 32.7 GM/DL (32-36); Mean Corpuscular Volume 91.9 FL (87-102); Mean Platelet Volume 11.9 FL (9.6-12.0); Monocytes # 0.9 10*3/uL (0.11-0.8); Monocytes % 3.8 % (1.7-12.7); NRBC # 0.04 10*3/uL; Neutrophils % 93.4 % (38.7-73.9); Platelet Count 104 T/CUMM (130-400); Red Blood Count 3.72 MC/CUMM (3.8-5.5); Red Cell Distribution Width 14.6 % (9.3-17.3); White Blood Count 23.2 T/CUMM (4-12)
[2020-04-11 05:23] LABS: Calcium 10.7 MG/DL (8.5-10.1); Osmolality,Calculated 301.1 MOS/KG (273-304); Potassium 4.8 MMOL/L (3.5-5.1)
[2020-04-11 07:07] LABS: Hypochromia 1+; Lymphocytes 1 % (20-55); Microcytosis 1+; Nucleated Red Blood Cells 1 (0-5); Total Cells Counted 100
[2020-04-11 07:08] LABS: Ovalocytes Slight; Platelet Estimate Decreased; Target Cells Slight
[2020-04-11] MEDS: ASPIRIN EC 81 MG TABLET PO SCH (09:57)
[2020-04-11] MEDS: CHOLECALCIFEROL 1,000 UNIT TABLET PO SCH (09:57)
[2020-04-11] MEDS: PANTOPRAZOLE 40 MG TABLET PO SCH (09:58)
[2020-04-11] MEDS: ISOSORBIDE DINITRATE 20 MG TABLET PO SCH ×3 (09:58→21:50)
[2020-04-11] MEDS: MULTIVITAMIN (CENTRUM) TABLET PO SCH (09:58)
[2020-04-11] MEDS: allopurinoL 100 MG TABLET PO SCH (09:58)
[2020-04-11] MEDS: DOCUSATE SODIUM 100 MG CAPSULE PO SCH ×2 (09:59→21:50)
[2020-04-11] MEDS: methylPREDNISolone SOD SUC 125 MG/2 ML VIAL IV SCH ×2 (09:59→23:08)
[2020-04-11] MEDS: LINACLOTIDE 145 MCG CAPSULE PO SCH (09:59)
[2020-04-11] MEDS: INSULIN ASPART PROTAMINE/ASPART 70/30 100 UNIT/ML SUBCUT SCH ×2 (09:59→16:36)
[2020-04-11] MEDS: hydrALAZINE 10 MG TABLET PO SCH ×3 (10:36→21:50)
[2020-04-11] MEDS: carvediloL 25 MG TABLET PO SCH ×2 (12:21→16:36)
[2020-04-11] MEDS: BISOPROLOL 5 MG TABLET PO SCH ×2 (16:35→21:50)
[2020-04-11] MEDS: amLODIPine 10 MG TABLET PO SCH (16:36)
[2020-04-11] MEDS: diphenhydrAMINE CAP 25 MG CAPSULE PO SCH (21:50)
[2020-04-11] MEDS: ATORVASTATIN 20 MG TABLET PO SCH (21:50)
[2020-04-11] MEDS: INSULIN GLARGINE 100 UNIT/ML SUBCUT SCH (23:06)
[2020-04-12] MEDS: INSULIN REGULAR 100 UNIT/ML SUBCUT SCH ×4 (00:50→17:26)
[2020-04-12] MEDS: ALBUTEROL/IPRATROPIUM 3 ML NEB RESP TX SCH ×4 (01:00→19:20)
[2020-04-12] MEDS: DOCUSATE SODIUM 100 MG CAPSULE PO SCH (10:20)
[2020-04-12] MEDS: ASPIRIN EC 81 MG TABLET PO SCH (10:20)
[2020-04-12] MEDS: MULTIVITAMIN (CENTRUM) TABLET PO SCH (10:20)
[2020-04-12] MEDS: PANTOPRAZOLE 40 MG TABLET PO SCH (10:21)
[2020-04-12] MEDS: ISOSORBIDE DINITRATE 20 MG TABLET PO SCH ×2 (10:21→15:34)
[2020-04-12] MEDS: CHOLECALCIFEROL 1,000 UNIT TABLET PO SCH (10:21)
[2020-04-12] MEDS: allopurinoL 100 MG TABLET PO SCH (10:21)
[2020-04-12] MEDS: LINACLOTIDE 145 MCG CAPSULE PO SCH (10:22)
[2020-04-12] MEDS: methylPREDNISolone SOD SUC 125 MG/2 ML VIAL IV SCH (10:22)
[2020-04-12] MEDS: INSULIN ASPART PROTAMINE/ASPART 70/30 100 UNIT/ML SUBCUT SCH ×2 (10:22→17:27)
[2020-04-12] MEDS: hydrALAZINE 10 MG TABLET PO SCH ×2 (10:26→15:35)
[2020-04-12] MEDS: carvediloL 25 MG TABLET PO SCH ×2 (10:26→17:26)
[2020-04-12] MEDS: BISOPROLOL 5 MG TABLET PO SCH (10:26)
[2020-04-12 17:24] VITALS: BP 130/68
== END 2020-04-12 19:40 | disposition home or self-care (01) ==
LOC: EDUNIT# → EDBD → N.ED 10:29 → N.EDINP 13:57 → N.TELES 17:09
PROVIDERS: ADMIT Family Medicine; ATTEND Family Medicine

== ENCOUNTER 2020-04-14 16:22 | Inpatient (IN) ==
[2020-04-14] MEDS ORDERED: DEXAMETHASONE 4 MG/1 ML VIAL IV STA (17:57)
[2020-04-14] MEDS ORDERED: ALBUTEROL 2.5 MG/3 ML NEB RESP TX STA (17:57)
[2020-04-14 18:06] LABS: Basophils % 0.1 % (0.0-0.8); Eosinophils # 0.1 10*3/uL (0.0-0.87); Eosinophils % 0.4 % (0.00-10.9); Immature Granulocytes % 1.2 %; Lymphocytes # 0.5 10*3/uL (1.4-4.0); Lymphocytes % 2.1 % (21.3-54.2); Mean Corpuscular HGB Conc 31.6 GM/DL (32-36); Mean Corpuscular Volume 93.1 FL (87-102); Mean Platelet Volume 12.9 FL (9.6-12.0); Monocytes % 5.2 % (1.7-12.7); Platelet Count 66 T/CUMM (130-400); Red Blood Count 4.08 MC/CUMM (3.8-5.5); Red Cell Distribution Width 15.7 % (9.3-17.3); White Blood Count 25.8 T/CUMM (4-12)
[2020-04-14 18:13] LABS: Albumin 2.6 G/DL (3.4-5.0); Bilirubin,Total 1.3 MG/DL (0.2-1.0); Osmolality,Calculated 299.6 MOS/KG (273-304); Potassium 3.9 MMOL/L (3.5-5.1); Total Protein 6.2 G/DL (6.4-8.3)
[2020-04-14 18:31] LABS: Hypochromasia 1+; Lymphocytes 3 % (20-55); Segmented Neutrophils 92 % (50-85); Target Cells 1+; Total Cells Counted 100
[2020-04-14 18:32] LABS: Elliptocytes Few; Platelet Estimate Decreased; Polychromasia Slight; Schistocytes Few
[2020-04-14] MEDS ORDERED: SODIUM CHLORIDE 0.9% 1,000 ML IV STA (18:40)
[2020-04-14] MEDS ORDERED: LEVOFLOXACIN INJ 500 MG in PREMIX 1 EACH IV STA (19:40)
[2020-04-14] MEDS ORDERED: ONDANSETRON 4 MG/2 ML VIAL IV PRN (21:43)
[2020-04-14] MEDS ORDERED: SODIUM CHLORIDE 0.45% 1,000 ML IV SCH (22:00)
[2020-04-15] MEDS ORDERED: MORPHINE 4 MG/1 ML VIAL IV PRN (00:15)
[2020-04-15 07:56] VITALS: BP 136/66
[2020-04-15] MEDS ORDERED: FUROSEMIDE 40 MG/4 ML VIAL ONE (08:41)
[2020-04-15] MEDS ORDERED: ETOMIDATE 20 MG/10 ML VIAL IV ONE ×3 (08:46→08:58)
[2020-04-15] MEDS ORDERED: SUCCINYLCHOLINE 200 MG/10 ML VIAL ONE (08:47)
[2020-04-15] MEDS ORDERED: SUCCINYLCHOLINE 200 MG/10 ML VIAL IV ONE (08:58)
[2020-04-15] MEDS ORDERED: PANTOPRAZOLE 40 MG TABLET PO SCH (09:00)
[2020-04-15] MEDS ORDERED: SODIUM CHLORIDE 0.9% 500 ML IV ONE (09:07)
[2020-04-15] MEDS ORDERED: NOREPINEPHRINE 4 MG/4 ML VIAL IV ONE (09:24)
[2020-04-15] MEDS: NOREPINEPHRINE 8 MG in SODIUM CHLORIDE 0.9% 242 ML IV PRN ×2 (09:28→16:48)
[2020-04-15] MEDS ORDERED: ROCURONIUM 500 MG in SODIUM CHLORIDE 0.9% 500 ML IV PRN (09:36)
[2020-04-15] MEDS ORDERED: fentaNYL INJ 1,250 MCG in SODIUM CHLORIDE 0.9% 225 ML IV PRN (09:36)
[2020-04-15] MEDS ORDERED: MIDAZOLAM 100 MG in SODIUM CHLORIDE 0.9% 80 ML IV PRN (09:36)
[2020-04-15] MEDS ORDERED: ROCURONIUM 100 MG/10 ML VIAL IV ONE ×3 (09:37→09:41)
[2020-04-15 10:07] LABS: ABG Base Excess 1.3 MMOL/L (-2.5-2.5); ABG HCO3 27.6 MMOL/L (20-26); ABG Oxygen Saturation 91.2 % (95-100); ABG PH 7.342 (7.35-7.45); ABG PO2 65.2 MM HG (80-95); ABG TCO2 29.1 MMOL/L (23-27); Pt O2 Delivery Device Ventilator
[2020-04-15 11:08] LABS: Bilirubin,Urine Negative (Negative); Blood, Urine Small mg/dL (Negative); Glucose,Urine (UA) Negative (Negative); Ketones,Urine Negative (Negative); Mucus,Urine Occasional /LPF (Occasional); Nitrite,Urine Negative (Negative); Protein,Urine Negative; RBC,Urine 4 /HPF (0-4); Squamous Epithelial Cell,Urine Occasional /HPF (0-10); Urine Appearance CLEAR (Clear); Urine Color Straw (Yellow); Urine Specific Gravity 1.006 (1.001-1.035); Urine Urobilinogen < 2.0 EU/DL (0.2-1.0); WBC,Urine <1 /HPF (0-6)
[2020-04-15 14:18] LABS: Basophils % 0.1 % (0.0-0.8); Eosinophils % 0.1 % (0.00-10.9); Hematocrit 33.7 VOL% (35.7-47.0); Hemoglobin 10.5 GM/DL (12.0-16.0); Lymphocytes # 0.2 10*3/uL (1.4-4.0); Mean Corpuscular HGB Conc 31.2 GM/DL (32-36); Mean Corpuscular Volume 95.2 FL (87-102); Mean Platelet Volume 12.8 FL (9.6-12.0); Neutrophils % 95.8 % (38.7-73.9); Platelet Count 48 T/CUMM (130-400); Red Blood Count 3.54 MC/CUMM (3.8-5.5); Red Cell Distribution Width 15.8 % (9.3-17.3); White Blood Count 19.1 T/CUMM (4-12)
[2020-04-15 14:34] LABS: Albumin 2.1 G/DL (3.4-5.0); Bilirubin,Total 0.9 MG/DL (0.2-1.0); Calcium 9.9 MG/DL (8.5-10.1); Osmolality,Calculated 310.6 MOS/KG (273-304); Potassium 4.5 MMOL/L (3.5-5.1); Total Protein 5.2 G/DL (6.4-8.3)
[2020-04-15] MEDS ORDERED: FUROSEMIDE 40 MG/4 ML VIAL IV ONE (14:37)
[2020-04-15] MEDS ORDERED: FUROSEMIDE 100 MG/10 ML VIAL ONE (14:40)
[2020-04-15] MEDS ORDERED: SODIUM BICARBONATE 50 MEQ/50 ML SYRINGE IV ONE (14:41)
[2020-04-15] MEDS ORDERED: CALCIUM CHLORIDE 1,000 MG/10 ML SYRINGE IV ONE (14:41)
[2020-04-15] MEDS ORDERED: EPINEPHrine 1 MG/10 ML SYRINGE ONE ×2 (14:41)
[2020-04-15 14:42] LABS: ABG Base Excess 1.4 MMOL/L (-2.5-2.5); ABG HCO3 25.2 MMOL/L (20-26); ABG Oxygen Saturation 71.2 % (95-100); ABG PCO2 48.7 MM HG (35-48); ABG PH 7.359 (7.35-7.45); ABG TCO2 25.2 MMOL/L (23-27); Pt O2 Delivery Device Ventilator
[2020-04-15 14:46] LABS: ABG PO2 40.8 MM HG (80-95)
[2020-04-15 15:30] LABS: Lymphocytes 1 % (20-55); Segmented Neutrophils 96 % (50-85); Total Cells Counted 100
[2020-04-15] MEDS ORDERED: HEPARIN 10,000 UNIT/10 ML VIAL IV SCH (17:15)
[2020-04-15] MEDS ORDERED: ALTEPLASE 2 MG VIAL IV ONE (17:30)
== END 2020-04-15 17:55 | disposition expired | DRG 208 ==
LOC: N.EDINP 16:22 → N.ED 16:22 → SUATTDRO 21:43 → N.EDINP 22:38 → N.2E 23:14 → N.CC 04-15 08:54
PROVIDERS: ADMIT Family Medicine; ATTEND Internal Medicine